=== PATIENT | male | born 1990 | race Caucasian/White ===

== ENCOUNTER 2017-01-01 15:15 | Emergency (ER) | payer SELFPAY ==
[2017-01-01] MEDS ORDERED: LORAZEPAM INJ 2 MG/1 ML VIAL IV ONE (15:40)
--- NOTE | 2017-01-01 15:54 | ER Document Report ---
ED Substance Abuse / Acc. OD - General Chief Complaint: Possible Overdose Stated Complaint: PSYCH EVALUATION,POSSIBLE OVERDOSE Notes: The patient is a 26-year-old male who presents in [employer] custody after he was found to be exhibiting bizarre behavior at the [facility]. To bystanders had to hold down 4 EDIN the arrested him. The patient was agitated and received 5 mg Haldol and 50 mg Benadryl IM by EMS. On arrival to the ER, the patient is not agitated and answering questions appropriately. He said he only smoked weed and does not think that it was laced with anything. He also said he drank a whole bottle of dextromethorphan in the attempt to get high. He did not want to hurt himself. He says he did not have any psychiatric disorders. Denies chest pain, palpitations, shortness of breath, nausea, vomiting, suicidal ideation, homicidal ideation, fevers or headache. TRAVEL OUTSIDE OF THE [place] IN LAST 30 DAYS: No Past Medical History - General Information source: Patient, Law Enforcement, Emergency Med Personnel - Social History Smoking Status: Unknown if Ever Smoked Drug Abuse: Prescription drugs Family History: Reviewed & Not Pertinent Review of Systems - Review of Systems Notes: REVIEW OF SYSTEMS: CONSTITUTIONAL: -fevers, -chills EENT: -eye pain, -difficulty swallowing, -nasal congestion CARDIOVASCULAR:-chest pain, -syncope. RESPIRATORY: -cough, -SOB GASTROINTESTINAL: -abdominal pain, - nausea, -vomiting, -diarrhea GENITOURINARY: -dysuria, -hematuria MUSCULOSKELETAL: -back pain, -neck pain SKIN: -rash or skin lesions. HEMATOLOGIC: -easy bruising or bleeding. LYMPHATIC: -swollen, enlarged glands. NEUROLOGICAL: +altered mental status PSYCHIATRIC: -anxiety, -depression, +drug abuse, -SI/HI ALL OTHER SYSTEMS REVIEWED AND NEGATIVE. Physical Exam - Vital signs Vitals: Temp Pulse Resp BP Pulse Ox 98.4 F 142 H 20 120/67 93 01/01/17 15:25 01/01/17 15:25 01/01/17 15:25 01/01/17 15:25 01/01/17 15:25 - Notes Notes: PHYSICAL EXAMINATION: GENERAL: Well-appearing, well-nourished and in no acute distress. HEAD: Atraumatic, normocephalic. EYES: Pupils equal round and reactive to light, extraocular movements intact, sclera anicteric, conjunctiva are normal. ENT: nares patent, oropharynx clear without exudates. Moist mucous membranes. NECK: Normal range of motion, supple without lymphadenopathy LUNGS: Breath sounds clear to auscultation bilaterally and equal. No wheezes rales or rhonchi. HEART: Tachycardia. Regular rhythm without murmurs ABDOMEN: Soft, nontender, normoactive bowel sounds. No guarding, no rebound. No masses appreciated. EXTREMITIES: Normal range of motion, no pitting or edema. No cyanosis. NEUROLOGICAL: Cranial nerves grossly intact. Normal speech. Normal sensory, motor, and reflex exams. PSYCH: Initially agitated. Denies SI/HI. SKIN: Warm, Dry, normal turgor, no rashes or lesions noted. Course - Re-evaluation Re-evalutation: 01/01/17 16:43 Spoke to [employer]. Recommends watching for 6 hours or until he returns to baseline. 01/01/17 21:37 Patient's tachycardia has resolved after 4 L IV fluid. His mental status is calm and at baseline. Instructed him to not take dextromethorphan to get high. Also told him to drink plenty of fluids to help prevent any rhabdo. He denies any suicidal ideation or homicidal ideation. - Vital Signs Vital signs: Temp Pulse Resp BP Pulse Ox 98.9 F 142 H 20 131/92 H 98 01/01/17 17:00 01/01/17 15:25 01/01/17 18:01 01/01/17 18:00 01/01/17 18:01 - Laboratory Result Diagrams: 01/01/17 15:40 01/01/17 15:40 Laboratory results interpreted by me: 01/01/17 01/01/17 15:40 15:40 Seg Neutrophils % 82.5 H Lymphocytes % 10.9 L Creatinine 1.45 H Est GFR (Non-Af Amer) 59 L Glucose 143 H Creatine Kinase 1039 H Salicylates < 1.0 L Acetaminophen < 10 L - EKG Interpretation by Me EKG shows normal: Sinus rhythm, [place], Intervals, QRS Complexes, ST-T Waves Rate: Tachycardia Additional EKG results interpreted by nv: QTc 469 Discharge - Discharge Clinical Impression: Rhabdomyolysis Qualifiers: Rhabdomyolysis type: non-traumatic Qualified Code(s): M62.82 - Rhabdomyolysis Dextromethorphan poisoning Qualifiers: Encounter type: initial encounter Injury intent: accidental or unintentional Qualified Code(s): T48.3X1A - Poisoning by antitussives, accidental ( unintentional), initial encounter Condition: Stable Disposition: HOME, SELF-CARE Additional Instructions: Drink plenty of fluids over the next few days. Do not take dextromethorphan to get high. Follow-up with your primary care physician to have your kidney tests rechecked. AMPHETAMINE / METHAMPHETAMINE ABUSE: Amphetamines are addicting stimulants. Amphetamines overstimulate the nervous system and give a false feeling of power and mastery. These drugs may be obtained as prescription pills for weight loss, narcolepsy, or attention- deficit disorder. More often they're bought as an illegal street drug, methamphetamine (crank, crystal, speed). Using amphetamines repeatedly can lead to serious medical problems including malnutrition, severe depression, and paranoia. It can take increasing amounts to feel good. Eventually, there will be a "burn out." When you go off amphetamines there is a period of depression that may last for weeks or even months. High doses of amphetamines can cause seizures, confusion, hallucinations, delusions, high blood pressure, muscle damage, heart damage, or sudden . Many times these deadly complications occur even with "normal" doses. Injection of amphetamines is risky for developing abscesses, endocarditis ( heart infection), pneumonia, and AIDS. Withdrawal from amphetamines often causes anxiety, depression, and drug cravings. Some users become paranoid and psychotic. There may be cramps, nausea , and vomiting. Many treatment programs are available, but you must make the decision to quit. Medication can be prescribed to control the symptoms of amphetamine toxicity (beta blockers or benzodiazepines). Withdrawal symptoms may require tranquilizers. OVERDOSE / INGESTION: You have taken more medication than you should have. After your evaluation and care, it is felt that your overdose is not likely to be harmful or of any significant consequences to you and you are being discharged. In the future, you should be careful not to take more medications than what is prescribed for you. Although your overdose does not seem to be of any danger to you at this time, if you develop any unusual or unexpected symptoms after your discharge, you should return to the Emergency Department immediately for re-evaluation. INSTRUCTIONS FOR HOME CARE FOLLOWING DRUG OVERDOSAGE: The doctor feels it's safe for you to go home. You will need to be observed. If charcoal and a laxative was given to you, expect some loose black stools soon. Take no medications unless approved by a physician, including alcohol. If drowsy, lie on your stomach or side for sleeping to avoid aspiration if vomiting occurs. Take only liquids by mouth until there is no more nausea. FOR THE OBSERVER: Observe the patient for the next 24 hours and call or go to the hospital if any of the following are noted: prolonged or repeated vomiting, difficulty in arousing, convulsions (seizures or fits), fever, persistent cough, breathing that is too slow or too rapid, or confused or bizarre behavior. If a counselling visit has been arranged, make sure the patient attends. Call the physician or poison control if you have questions. FOLLOW-UP CARE: If you have been referred to a physician for follow-up care, call the physician s office for an appointment as you were instructed or within the next two days. If you experience worsening or a significant change in your symptoms, notify the physician immediately or return to the Emergency Department at any time for re-evaluation.
[2017-01-01] MEDS: NORMAL SALINE 1000 ML 1,000 ML IV PRN ×2 (15:58→16:37)
[2017-01-01 16:02] LABS: ABSOLUTE BASOPHILS # (AUTO) 0.1 10^3/uL (0.0-0.2); ABSOLUTE MONOCYTES (AUTO) 0.5 10^3/uL (0.1-1.4); ABSOLUTE NEUT (AUTO) 7.3 10^3/uL (1.7-8.2); BASOPHILS % (AUTO) 0.7 % (0-2); EOSINOPHILS % (AUTO) 0.1 % (0-6); HEMATOCRIT 47.4 % (37.9-51.0); HEMOGLOBIN 16.1 g/dL (13.5-17.0); HGB HCT DIFFERENCE 0.9; LYMPHOCYTES % (AUTO) 10.9 % (13-45); MEAN CORPUSCULAR HEMOGLOBIN 29.6 pg (27.0-33.4); MEAN CORPUSCULAR VOLUME 87 fl (80-97); MONOCYTES % (AUTO) 5.8 % (3-13); RED BLOOD COUNT 5.44 10^6/uL (4.35-5.55); RED CELL DISTRIBUTION WIDTH 13.4 % (11.5-14.0); SEGMENTED NEUTROPHILS % (AUTO) 82.5 % (42-78); WHITE BLOOD COUNT 8.8 10^3/uL (4.0-10.5)
[2017-01-01 16:19] LABS: ALANINE AMINOTRANSFERASE 36 U/L (21-72); ALBUMIN 4.4 g/dL (3.5-5.0); ALKALINE PHOSPHATASE 61 U/L (38-126); ANION GAP 16 (5-19); ASPARTATE AMINO TRANSFERASE 53 U/L (17-59); BILIRUBIN,TOTAL 0.4 mg/dL (0.2-1.3); BLOOD UREA NITROGEN 13 mg/dL (7-20); CALCIUM 10.1 mg/dL (8.4-10.2); CARBON DIOXIDE 24 mmol/L (22-30); CHLORIDE 103 mmol/L (98-107); CREATINE KINASE 1039 U/L (55-170); CREATININE RESULT 1.45 mg/dL (0.52-1.25); GLUCOSE 143 mg/dL (75-110); POTASSIUM 4.1 mmol/L (3.6-5.0); SODIUM 143.1 mmol/L (137-145); TOTAL PROTEIN 6.7 g/dL (6.3-8.2)
[2017-01-01 16:21] LABS: ALCOHOL < 10 mg/dL (NONE DETECTED)
[2017-01-01] MEDS ORDERED: NORMAL SALINE 1000 ML 1,000 ML IV PRN (19:46)
[2017-01-01 20:35] LABS: APPEARANCE,URINE CLEAR; BILIRUBIN,URINE NEGATIVE (NEGATIVE); GLUCOSE, URINE NEGATIVE (NEGATIVE); KETONES,URINE NEGATIVE (NEGATIVE); LEUKOCYTE ESTERASE,URINE NEGATIVE (NEGATIVE); NITRITE,URINE NEGATIVE (NEGATIVE); PROTEIN,URINE NEGATIVE (NEGATIVE); URINE SPECIFIC GRAVITY 1.011; UROBILINOGEN,URINE NEGATIVE mg/dL (<2.0)
[2017-01-02 00:02] VITALS: BP 119/87
[2017-01-02 00:31] LABS: URINE BARBITURATES SCREEN NEGATIVE; URINE METHADONE SCREEN NEGATIVE; URINE OPIATES LOW NEGATIVE; URINE PHENCYCLIDINE SCREEN UNCONFIRMED POSITIVE
--- NOTE | 2017-01-02 16:04 | EKG REPORT ---
SEVERITY:- BORDERLINE ECG - SINUS TACHYCARDIA BORDERLINE PROLONGED QT INTERVAL : Confirmed by: Corrina Mcintosh MD 02-Jan-2017 16:03:12
== END 2017-01-01 23:15 | disposition home or self-care (01) ==
LOC: ER 15:15
DX: T48.3X1A Poisoning by antitussives, accidental (unintentional), initial encounter (principal); R00.0 Tachycardia, unspecified; R45.1 Restlessness and agitation; M62.82 Rhabdomyolysis
CPT/HCPCS: 93005; 99285; 96361; 96374; 36415; 80307 ×4; 82550; 85025; 80053; 81001; 93010; J2060; J7030

== ENCOUNTER 2019-10-29 16:08 | Inpatient (IN) | payer SELFPAY ==
[2019-10-29] MEDS ORDERED: MAG HYDROX/AL HYDROX/SIMETH SUSP 30 ML UDCUP PO ONE (16:49)
[2019-10-29] MEDS ORDERED: LIDOCAINE 2% VISCOUS SOLN 15 ML UDCUP PO ONE (16:49)
[2019-10-29] MEDS ORDERED: METOCLOPRAMIDE HCL ORAL SOLN 10 MG/10 ML UDCUP PO ONE (16:49)
[2019-10-29 17:53] LABS: HEMATOCRIT 50.4 % (37.9-51.0); HEMOGLOBIN 17.5 g/dL (13.5-17.0); MEAN CORPUSCULAR HEMOGLOBIN 28.2 pg (27.0-33.4); MEAN CORPUSCULAR HGB CONC 34.7 g/dL (32.0-36.0); MEAN CORPUSCULAR VOLUME 81 fl (80-97); PLATELET COUNT 219 10^3/uL (150-450); RED CELL DISTRIBUTION WIDTH 13.6 % (11.5-14.0); WHITE BLOOD COUNT 25.2 10^3/uL (4.0-10.5)
[2019-10-29 17:59] LABS: APPEARANCE,URINE SLIGHTLY-CLOUDY; BILIRUBIN,URINE NEGATIVE (NEGATIVE); COLOR,URINE AMBER; GLUCOSE, URINE NEGATIVE (NEGATIVE); KETONES,URINE TRACE mg/dL (NEGATIVE); LEUKOCYTE ESTERASE,URINE NEGATIVE (NEGATIVE); NITRITE,URINE NEGATIVE (NEGATIVE); PROTEIN,URINE 100 mg/dL (NEGATIVE); URINE SPECIFIC GRAVITY 1.027
[2019-10-29 18:01] LABS: ALBUMIN 4.4 g/dL (3.5-5.0); ALKALINE PHOSPHATASE 80 U/L (38-126); ANION GAP 12 (5-19); ASPARTATE AMINO TRANSFERASE 29 U/L (17-59); BILIRUBIN,DIRECT 0.1 mg/dL (0.0-0.4); BILIRUBIN,TOTAL 1.5 mg/dL (0.2-1.3); BLOOD UREA NITROGEN 14 mg/dL (7-20); CALCIUM 9.2 mg/dL (8.4-10.2); CARBON DIOXIDE 29 mmol/L (22-30); CHLORIDE 91 mmol/L (98-107); GLUCOSE 131 mg/dL (75-110); TOTAL PROTEIN 7.4 g/dL (6.3-8.2)
--- NOTE | 2019-10-29 18:02 | ER Document Report ---
ED Medical Screen (RME) - General Chief Complaint: Abdominal Pain Stated Complaint: ABDOMINAL PAIN Time Seen by Provider: 10/29/19 16:43 Notes: Patient is a 29-year-old male who presents to the emergency department with a chief complaint of abdominal pain. His pain started Wednesday. He states he vomited twice that day. Pain is in his sternal abdomen. Denies any past medical history. He took Imodium to try to help with his pain, but did not help. Exam: Tender left upper quadrant abdomen. I have greeted and performed a rapid initial assessment of this patient. A comprehensive ED assessment and evaluation of the patient, analysis of test results and completion of medical decision making process will be conducted by an additional ED providers. TRAVEL OUTSIDE OF THE [place] IN LAST 30 DAYS: No - Related Data Allergies/Adverse Reactions: No Known Allergies Allergy (Unverified 10/29/19 16:48) Past Medical History - Social History Frequency of alcohol use: Occasional Drug Abuse: None Physical Exam - Vital signs Vitals: Temp Pulse Resp BP Pulse Ox 99.8 F 118 H 18 133/92 H 96 10/29/19 16:22 10/29/19 16:22 10/29/19 16:22 10/29/19 16:22 10/29/19 16:22 Course - Vital Signs Vital signs: Temp Pulse Resp BP Pulse Ox 99.8 F 118 H 18 133/92 H 96 10/29/19 16:22 10/29/19 16:22 10/29/19 16:22 10/29/19 16:22 10/29/19 16:22 - Laboratory Result Diagrams: 10/29/19 17:30 10/29/19 17:30
[2019-10-29] MEDS ORDERED: NORMAL SALINE 1000 ML 1,000 ML IV ONE ×2 (18:23→20:21)
[2019-10-29] MEDS ORDERED: MORPHINE SULFATE 10 MG/ML INJ IV ONE (18:58)
--- NOTE | 2019-10-29 19:01 | ER Document Report ---
ED GI/ - General Chief Complaint: Abdominal Pain Stated Complaint: ABDOMINAL PAIN Time Seen by Provider: 10/29/19 16:43 Notes: Patient is a 29-year-old male who presents to the emergency department with a chief complaint of abdominal pain. His pain started Wednesday. He states he vomited twice that day. Pain is in his sternal abdomen. Denies any past medical history. He took Imodium to try to help with his pain, but did not help. He denies any past medical history. Denies any medication use. States he drinks 1-2 beers 3-4 times a week. TRAVEL OUTSIDE OF THE [place] IN LAST 30 DAYS: No - Related Data Allergies/Adverse Reactions: No Known Allergies Allergy (Unverified 10/29/19 16:48) Past Medical History - Social History Smoking Status: Never Smoker Frequency of alcohol use: Occasional Drug Abuse: None Family History: Reviewed & Not Pertinent Patient has suicidal ideation: No Patient has homicidal ideation: No Review of Systems - Review of Systems Notes: REVIEW OF SYSTEMS: CONSTITUTIONAL : Denies recent illness. Denies recent unintentional weight loss. Denies fever, chills, or sweats. EENT: Denies eye, ear, throat, or mouth pain, discharge, or symptoms. Denies nasal or sinus congestion. CARDIOVASCULAR: Denies chest pain. RESPIRATORY: Denies shortness of breath, cough, congestion, difficulty breathing, or wheezing. GASTROINTESTINAL: See HPI. GENITOURINARY: Denies difficulty urinating, burning, blood in urine, urgency or frequency. MUSCULOSKELETAL: Denies neck and back pain. Denies joint pain or swelling. SKIN: Denies rash, itchiness, or lesions HEMATOLOGIC : Denies easy bruising or bleeding. LYMPHATIC: Denies swollen, painful, enlarged glands. NEUROLOGICAL: Denies no numbness or tingling denies weakness. Denies headache. Denies altered mental status. Denies alteration in speech. PSYCHIATRIC: Denies stress, anxiety, alteration in sleep patterns, or depressi on. All other systems reviewed and negative. Physical Exam - Vital signs Vitals: Temp Pulse Resp BP Pulse Ox 99.8 F 118 H 18 133/92 H 96 10/29/19 16:22 10/29/19 16:22 10/29/19 16:22 10/29/19 16:22 10/29/19 16:22 - Notes Notes: PHYSICAL EXAMINATION: GENERAL: Appears well, healthy, well-nourished, no acute distress. HEAD: Normocephalic, atraumatic. EYES: PERRL, conjunctiva normal, all extraocular movements intact, sclera nonicteric ENT: Moist mucous membranes. NECK: Supple, no noticeable swelling, redness, rash. Normal range of motion. LUNGS: Equal breath sounds bilaterally and clear to auscultation. No wheezes rales or rhonchi. CARDIOVASCULAR: S1-S2, regular rate, regular rhythm. Radial pulses 2+, normal. ABDOMEN: Normoactive bowel sounds. Soft, very tender mid upper abdomen, no guarding, no rebound tenderness, and no masses palpated. EXTREMITIES: Normal strength and range of motion, no pitting or edema. No cyanosis. NEUROLOGICAL: Moves all extremities upon command. Strength 5/5 in all extremities. PSYCH: Normal mood, normal affect. SKIN: Warm, dry. No rash, lesions, ulcerations noted. Normal skin turgor. Course - Re-evaluation Re-evalutation: 10/29/19 20:21 Patient's hematology shows a leukocytosis of 25,200. His hemoglobin was also elevated at 17.5. This is most likely due to dehydration. Patient is hyponatremic with a sodium of 132 and a chloride of 91. Another liter of fluids will be given. Total bilirubin is 1.5. Lipase is 1180. Due to patient having so much tenderness on his physical exam, he will be sent for a CT of the abdomen pelvis to rule out any other etiology. 10/29/19 22:00 CT of the abdomen and pelvis show pancreatitis, scites, and small bilateral pleural effusions. I spoke with Dr. Edgar, the hospitalist physician. Patient will be admitted to the medical floor. - Vital Signs Vital signs: Temp Pulse Resp BP Pulse Ox 98.5 F 91 18 125/72 92 10/30/19 07:32 10/30/19 07:32 10/30/19 07:32 10/30/19 07:32 10/30/19 07:32 - Laboratory Result Diagrams: 10/30/19 06:06 10/30/19 06:06 Laboratory results interpreted by me: 10/29/19 10/29/19 10/29/19 17:30 17:30 17:30 WBC 25.2 H RBC 6.20 H Hgb 17.5 H Seg Neuts % (Manual) 88 H Lymphocytes % (Manual) 4 L Abs Neuts (Manual) 22.2 H Abs Monocytes (Manual) 2.0 H Sodium 132.1 L Chloride 91 L Glucose 131 H Total Bilirubin 1.5 H Lipase 1180.9 H Free T3 pg/mL Urine Protein 100 H Urine Ketones TRACE H Urine Blood SMALL H Urine Urobilinogen 2.0 H 10/29/19 17:30 WBC RBC Hgb Seg Neuts % (Manual) Lymphocytes % (Manual) Abs Neuts (Manual) Abs Monocytes (Manual) Sodium Chloride Glucose Total Bilirubin Lipase Free T3 pg/mL 2.10 L Urine Protein Urine Ketones Urine Blood Urine Urobilinogen Discharge - Discharge Clinical Impression: Pleural effusion, Hyponatremia Pancreatitis Qualifiers: Chronicity: acute Pancreatitis type: unspecified pancreatitis type Acute pancreatitis complication: unspecified Qualified Code(s): K85.90 - Acute pancreatitis without necrosis or infection, unspecified Leukocytosis Qualifiers: Leukocytosis type: unspecified Qualified Code(s): D72.829 - Elevated white blood cell count, unspecified Condition: Stable Disposition: ADMITTED INPATIENT Admitting Provider: Tala (Hospitalist) Unit Admitted: Medical Floor
[2019-10-29 19:15] LABS: BASOPHILS % (MANUAL) 0 % (0-2); EOSINOPHILS % (MANUAL) 0 % (0-6); LYMPHOCYTES % (MANUAL) 4 % (13-45); MONOCYTES % (MANUAL) 8 % (3-13); PLATELET COMMENT ADEQUATE; RBC MORPHOLOGY COMMENT NORMO-CYTIC/CHROMIC; SEGMENTED NEUTROPHILS % (MAN) 88 % (42-78); TOTAL CELLS COUNTED 100
--- NOTE | 2019-10-29 20:27 | RADIOLOGY REPORT (SQ) ---
EXAM DESCRIPTION: CT ABDOMEN PELVIS WITH IV CONTRAST COMPLETED DATE/TME: 10/29/2019 18:45 CLINICAL HISTORY: 29 years, Male, abdominal pain This exam was performed according to our departmental dose-optimization program which includes automated exposure control, adjustment of the mA and/or kVp according to patient size and/or use of iterative reconstruction technique where applicable. FINDINGS: Visualized lung bases demonstrate mild layering bilateral pleural effusions. Liver, spleen, gallbladder, adrenal glands and kidneys are within normal limits. No hydronephrosis or biliary dilatation. Moderate peripancreatic inflammation is noted. Mild to moderate pancreatic inflammation is noted diffusely. Mild upper abdominal ascites. No dilated loops of bowel to suggest obstruction. Mild amount of stool in the colon. Bladder is unremarkable. No abdominal or pelvic lymphadenopathy. Abdominal aorta is within normal limits. IMPRESSION: Moderate findings of pancreatitis. Mild upper abdominal ascites. Small bilateral pleural effusions.
[2019-10-29] MEDS ORDERED: MORPHINE SULFATE 10 MG/ML INJ IV PRN ×2 (21:50)
[2019-10-29] MEDS ORDERED: MAG HYDROX/AL HYDROX/SIMETH SUSP 30 ML UDCUP PO PRN (21:50)
[2019-10-29] MEDS ORDERED: HYDRALAZINE HCL INJ/PF 20 MG/1 ML SDV IV PRN (21:50)
[2019-10-29] MEDS ORDERED: ACETAMINOPHEN 650 MG SUPP.RECT PR PRN (21:50)
[2019-10-29] MEDS ORDERED: MAGNESIUM HYDROXIDE SUSP 30 ML UDCUP PO PRN (21:50)
[2019-10-29] MEDS ORDERED: PROMETHAZINE HCL INJ 25 MG/1 ML VIAL IV PRN (21:53)
[2019-10-29] MEDS: METOCLOPRAMIDE HCL INJ/PF 10 MG/2 ML SDV IV SCH (22:20)
[2019-10-29] MEDS: HEPARIN SOD (PORCINE) 5,000 UNIT/ML 1 ML VIAL SUBCUT SCH (22:20)
[2019-10-29] MEDS: FAMOTIDINE INJ/PF 20 MG/2 ML SDV IV SCH (22:20)
[2019-10-29] MEDS: DEXTROSE 5%-LACTATED RINGERS 1,000 ML IV PRN (22:34)
[2019-10-29] MEDS: MORPHINE SULFATE 10 MG/ML INJ IV PRN (22:38)
[2019-10-30] MEDS: MORPHINE SULFATE 10 MG/ML INJ IV PRN ×4 (00:16→22:24)
[2019-10-30] MEDS: MELATONIN 5 MG TABLET PO PRN ×2 (00:16→22:25)
--- NOTE | 2019-10-30 00:49 | PDOC H&P ---
History of Present Illness Admission Date/PCP: 10/29/2019 21:33 No local PCP Patient complains of: Abdominal pain History of Present Illness: RAHUL RAI is a 29 year old male who presents the emergency room with a 3-day history of abdominal pain. He admits his constant, moderate to severe ep igastric dull aching pain began on the late evening of 10/27/2019 and has persisted since that time. Earlier in afternoon and early evening of 10/27/2019 he had consumed a total of 8 beers and 2 mixed drinks, which is far more than his usual occasional social alcohol consumption. His pain was associated with 2 episodes of vomiting during the first 24 hours and constant nausea and anorexia. His pain has not responded to home treatment with Coricidin capsules Imodium-AD tablets. He denies other associated or accompanying signs and symptoms. He denies prior similar episodes. He has not identified any aggravating or ameliorating factors for his abdominal pain. In the emergency room he was found to have an elevated lipase of 1180 with an elevated white blood count of 25,200. A CT scan of the abdomen and pelvis revealed evidence of acute pancreatitis. Patient was subsequently admitted to the hospital for further evaluation treatment. Past Medical History Cardiac Medical History: Denies: Coronary Artery Disease, DVT, Hypertension, Pulmonary Embolism Pulmonary Medical History: Denies: Asthma, Chronic Obstructive Pulmonary Disease (COPD) EENT Medical History: Denies: Cataracts, Nose - Septal deviation Neurological Medical History: Denies: Multiple Sclerosis, Seizures Endocrine Medical History: Denies: Diabetes Mellitus Type 1, Hyperthyroidism, Hypothyroidism, Obesity Renal/ Medical History: Denies: Chronic Kidney Disease, Nephrolithiasis Malignancy Medical History: Reports: None GI Medical History: Denies: Cirrhosis, Crohn's Disease, Gastroesophageal Reflux Disease, Hepatitis, Peptic Ulcer Disease, Ulcerative Colitis Musculoskeltal Medical History: Denies: Arthritis, Gout Skin Medical History: Denies: Eczema, Psoriasis Psychiatric Medical History: Denies: Alcohol Dependency, Substance Abuse, Tobacco Dependency Traumatic Medical History: Reports: None Hematology: Denies: Anemia, Bleeding Tendencies Infectious Medical History: Reports: None Past Surgical History Past Surgical History: Reports: None Social History Information Source: Patient Lives with: Alone Smoking Status: Never Smoker Electronic Cigarette use?: No Frequency of Alcohol Use: Social - 1 or 2 beers 3-4 times per week when out with friends Hx Recreational Drug Use: No Drugs: None Hx Prescription Drug Abuse: No - Advance Directive Resuscitation Status: Full Code Surrogate healthcare decision maker:: Candido Rai Family History Family History: Hypertension - Father. denies: CAD, DM, Malignancy Parental Family History Reviewed: Yes Children Family History Reviewed: No Sibling(s) Family History Reviewed.: Yes Medication/Allergy Allergies/Adverse Reactions: No Known Allergies Allergy (Unverified 10/29/19 16:48) Review of Systems Constitutional: ABSENT: chills, fever(s) Eyes: ABSENT: visual disturbances, other - Eye pain Ears: ABSENT: hearing changes, other - Ear pain Nose, Mouth, and Throat: ABSENT: headache(s), mouth pain, sore throat Cardiovascular: ABSENT: chest pain, palpitations Respiratory: ABSENT: cough, dyspnea Gastrointestinal: PRESENT: as per HPI, abdominal pain, nausea, vomiting. ABSENT: constipation, diarrhea Genitourinary: ABSENT: difficulty urinating, dysuria, hematuria Musculoskeletal: ABSENT: back pain, joint swelling, muscle weakness Integumentary: ABSENT: pruritus, rash Neurological: ABSENT: confusion, convulsions, focal weakness, memory loss, syncope Psychiatric: ABSENT: anxiety, depression Endocrine: ABSENT: cold intolerance, heat intolerance, polydipsia, polyphagia, polyuria Hematologic/Lymphatic: ABSENT: easy bleeding, easy bruising Allergic/Immunologic: ABSENT: seasonal rhinorrhea Physical Exam Vital Signs: Temp Pulse Resp BP Pulse Ox 99.3 F 104 H 18 114/72 93 10/29/19 21:09 10/29/19 21:09 10/29/19 16:22 10/29/19 21:09 10/29/19 21:09 Intake & Output 10/27/19 10/28/19 10/29/19 23:59 23:59 23:59 Intake Total 1000 Balance 1000 Weight 84.7 kg General appearance: PRESENT: cooperative, mild distress - Secondary to abdominal pain Head exam: PRESENT: atraumatic, normocephalic Eye exam: PRESENT: conjunctiva pink. ABSENT: conjunctival injection, scleral icterus Ear exam: PRESENT: normal external ear exam. ABSENT: bleeding, drainage Mouth exam: PRESENT: dry mucosa, neck supple Neck exam: ABSENT: thyromegaly, tracheal deviation Respiratory exam: PRESENT: clear to auscultation sulema, symmetrical, unlabored Cardiovascular exam: PRESENT: RRR. ABSENT: clicks, gallop, rubs Pulses: PRESENT: normal radial pulses, normal dorsalis pedis pul Vascular exam: PRESENT: normal capillary refill. ABSENT: pallor GI/Abdominal exam: PRESENT: hypoactive bowel sounds, soft, tenderness - Moderate epigastric tenderness on palpation. ABSENT: distended Rectal exam: PRESENT: deferred Extremities exam: ABSENT: joint swelling, pedal edema Musculoskeletal exam: ABSENT: deformity, dislocation Neurological exam: PRESENT: alert, oriented to person, oriented to place, oriented to time, oriented to situation, CN II-XII grossly intact. ABSENT: motor sensory deficit Psychiatric exam: PRESENT: appropriate affect, normal mood Skin exam: PRESENT: dry, intact, warm. ABSENT: jaundice, rash, urticaria Results Laboratory Results: 10/29/19 17:30 10/29/19 17:30 10/29/19 10/29/19 10/29/19 17:30 17:30 17:30 WBC 25.2 H RBC 6.20 H Hgb 17.5 H Hct 50.4 MCV 81 MCH 28.2 MCHC 34.7 RDW 13.6 Plt Count 219 Seg Neutrophils % Not Reportable Sodium 132.1 L Potassium 4.0 Chloride 91 L Carbon Dioxide 29 Anion Gap 12 BUN 14 Creatinine 0.93 Est GFR ( Amer) > 60 Glucose 131 H Calcium 9.2 Total Bilirubin 1.5 H AST 29 Alkaline Phosphatase 80 Total Protein 7.4 Albumin 4.4 Lipase 1180.9 H Urine Color JANE Urine Appearance SLIGHTLY-CLOUDY Urine pH 6.0 Ur Specific [place] 1.027 Urine Protein 100 H Urine Glucose (UA) NEGATIVE Urine Ketones TRACE H Urine Blood SMALL H Urine Nitrite NEGATIVE Ur Leukocyte Esterase NEGATIVE Urine WBC (Auto) 4 Urine RBC (Auto) 1 Impressions: Abdomen/Pelvis CT 10/29/19 18:45 IMPRESSION: Moderate findings of pancreatitis. Mild upper abdominal ascites. Small bilateral pleural effusions. Assessment and Plan - Diagnosis (1) Acute pancreatitis without infection or necrosis Qualifiers: Pancreatitis type: alcohol induced Qualified Code(s): K85.20 - Alcohol induced acute pancreatitis without necrosis or infection Is this a current diagnosis for this admission?: Yes (2) Acute epigastric pain Is this a current diagnosis for this admission?: Yes (3) Leukocytosis Qualifiers: Leukocytosis type: unspecified Qualified Code(s): D72.829 - Elevated white blood cell count, unspecified Is this a current diagnosis for this admission?: Yes (4) Hyponatremia Is this a current diagnosis for this admission?: Yes - Plan Summary Summary: Patient is admitted to the medical floor where he will receive routine supportive and symptomatic cares. He will be treated with IV fluid using lactated Ringer's. He will be allowed to take clear liquids initially as tolerated and desired. He will be treated with IV Reglan and famotidine. When he is able to take and advanced diet he should receive pancreatic enzyme replacement with meals and oral sucralfate prior to meals. He will receive morphine sulfate 2 to 4 mg IV every 2 hours on an as-needed basis for pain control using a sliding scale for dosage. Serial laboratory determinations of CBCs, metabolic profiles, lipase levels, amylase levels and magnesium levels will be obtained as appropriate. - Time Time Spent with patient: 15-24 minutes Medications reviewed and adjusted accordingly: Yes Anticipated discharge: Home - Inpatient Certification Based on my medical assessment, after consideration of the patient's comorbidities, presenting symptoms, or acuity I expect that the services needed warrant INPATIENT care.: Yes I certify that my determination is in accordance with my understanding of Medicare's requirements for reasonable and necessary INPATIENT services [42 CFR 412.3e].: Yes Medical Necessity: Need Close Monitoring Due to Risk of Patient Decompensation, Need For IV Fluids, Need for Pain Control, Risk of Complication if Not Cared For in Hospital
[2019-10-30] MEDS: DEXTROSE 5%-LACTATED RINGERS 1,000 ML IV PRN ×4 (05:19→19:50)
[2019-10-30 06:41] LABS: HEMATOCRIT 39.9 % (37.9-51.0); MEAN CORPUSCULAR HEMOGLOBIN 28.6 pg (27.0-33.4); MEAN CORPUSCULAR HGB CONC 34.5 g/dL (32.0-36.0); MEAN CORPUSCULAR VOLUME 83 fl (80-97); PLATELET COUNT 168 10^3/uL (150-450); RED BLOOD COUNT 4.81 10^6/uL (4.35-5.55); RED CELL DISTRIBUTION WIDTH 13.3 % (11.5-14.0); WHITE BLOOD COUNT 15.5 10^3/uL (4.0-10.5)
[2019-10-30 06:42] LABS: AMYLASE 218 U/L (30-110); ANION GAP 6 (5-19); BLOOD UREA NITROGEN 10 mg/dL (7-20); CALCIUM 7.9 mg/dL (8.4-10.2); CARBON DIOXIDE 29 mmol/L (22-30); CHLORIDE 97 mmol/L (98-107); CHOLESTEROL 153.54 mg/dL (0-200); GLUCOSE 123 mg/dL (75-110); POTASSIUM 3.7 mmol/L (3.6-5.0); TRIGLYCERIDES 134 mg/dL (<150)
[2019-10-30] MEDS: HEPARIN SOD (PORCINE) 5,000 UNIT/ML 1 ML VIAL SUBCUT SCH ×3 (06:45→22:24)
[2019-10-30 06:52] LABS: DIRECT LDL 90 mg/dL (<100); HEMOGLOBIN 13.8 g/dL (13.5-17.0)
[2019-10-30] MEDS: METOCLOPRAMIDE HCL INJ/PF 10 MG/2 ML SDV IV SCH ×4 (08:05→22:25)
[2019-10-30] MEDS ORDERED: DEXTROSE 40% GEL 15 GM TUBE PO PRN ×2 (08:48)
[2019-10-30] MEDS ORDERED: GLUCAGON,HUMAN RECOMB 1 MG INJ SUBCUT PRN (08:48)
[2019-10-30] MEDS ORDERED: DEXTROSE 50%-WATER 25 GM/50 ML DISP.SYRIN IV PRN ×2 (08:48)
--- NOTE | 2019-10-30 10:10 | RADIOLOGY REPORT (SQ) ---
EXAM DESCRIPTION: CHEST SINGLE VIEW COMPLETED DATE/TIME: 10/30/2019 9:47 am REASON FOR STUDY: SOB COMPARISON: None. EXAM PARAMETERS: NUMBER OF VIEWS: One view. TECHNIQUE: Single frontal radiographic view of the chest acquired. RADIATION DOSE: NA LIMITATIONS: Low lung volumes. FINDINGS: LUNGS AND PLEURA: There is infiltrate in the left base either atelectasis or pneumonia. L brodie urias are otherwise clear. MEDIASTINUM AND HILAR STRUCTURES: No masses. Contour normal. HEART AND VASCULAR STRUCTURES: Heart normal in size. Normal vasculature. BONES: No acute findings. HARDWARE: None in the chest. OTHER: No other significant finding. IMPRESSION: Left basilar infiltrate either atelectasis or pneumonia. TECHNICAL DOCUMENTATION: JOB ID: [id number] [employer]- All Rights Reserved Reading location - IP/workstation name: [email or web address]
[2019-10-30] MEDS: DOCUSATE SODIUM 100 MG/10 ML UDC PO SCH ×2 (10:50→17:23)
[2019-10-30] MEDS: FAMOTIDINE INJ/PF 20 MG/2 ML SDV IV SCH ×2 (10:54→22:25)
--- NOTE | 2019-10-30 11:53 | PDOC PROGRESS REPORT ---
Subjective Progress Note for:: 10/30/19 Subjective:: This is a 29 yr old male who had a recent alcohol binge who subsequently developed abdominal pain. He was found to have acute pancreatitis. Patient tried chicken broth this morning and reported increasing recurrence of epigastric pain and required IV pain meds. Will switch him to NPO status today. Continue IV fluids. Reason For Visit: ACUTE PANCREATITIS Physical Exam Vital Signs: Temp Pulse Resp BP Pulse Ox 99.7 F 92 18 128/75 H 90 L 10/30/19 11:32 10/30/19 11:32 10/30/19 11:32 10/30/19 11:32 10/30/19 11:32 Intake & Output 10/29/19 10/30/19 10/31/19 06:59 06:59 06:59 Intake Total 3900 935 Balance 3900 935 Weight 187 lb 13.341 oz General appearance: PRESENT: no acute distress, well-developed, well-nourished Head exam: PRESENT: atraumatic, normocephalic Eye exam: PRESENT: conjunctiva pink, EOMI, PERRLA. ABSENT: scleral icterus Ear exam: PRESENT: normal external ear exam Mouth exam: PRESENT: moist, tongue midline Neck exam: ABSENT: carotid bruit, JVD, lymphadenopathy, thyromegaly Respiratory exam: PRESENT: clear to auscultation sulema. ABSENT: rales, rhonchi, wheezes Cardiovascular exam: PRESENT: RRR. ABSENT: diastolic murmur, rubs, systolic murmur Pulses: PRESENT: normal dorsalis pedis pul GI/Abdominal exam: PRESENT: normal bowel sounds, soft, tenderness - minimial direct epig tenderness. ABSENT: distended, guarding, mass, organolmegaly, rebound Rectal exam: PRESENT: deferred Extremities exam: PRESENT: full ROM. ABSENT: calf tenderness, clubbing, pedal edema Neurological exam: PRESENT: alert, awake, oriented to person, oriented to place, oriented to time, oriented to situation, CN II-XII grossly intact. ABSENT: motor sensory deficit Results Laboratory Results: 10/30/19 06:06 10/30/19 06:06 10/29/19 10/29/19 10/29/19 17:30 17:30 17:30 WBC 25.2 H RBC 6.20 H Hgb 17.5 H Hct 50.4 MCV 81 MCH 28.2 MCHC 34.7 RDW 13.6 Plt Count 219 Seg Neutrophils % Not Reportable Sodium 132.1 L Potassium 4.0 Chloride 91 L Carbon Dioxide 29 Anion Gap 12 BUN 14 Creatinine 0.93 Est GFR ( Amer) > 60 Glucose 131 H Lactic Acid Calcium 9.2 Magnesium Total Bilirubin 1.5 H AST 29 Alkaline Phosphatase 80 Total Protein 7.4 Albumin 4.4 Triglycerides Cholesterol LDL Cholesterol Direct VLDL Cholesterol HDL Cholesterol Amylase Lipase 1180.9 H TSH Free T3 pg/mL Urine Color JANE Urine Appearance SLIGHTLY-CLOUDY Urine pH 6.0 Ur Specific [place] 1.027 Urine Protein 100 H Urine Glucose (UA) NEGATIVE Urine Ketones TRACE H Urine Blood SMALL H Urine Nitrite NEGATIVE Ur Leukocyte Esterase NEGATIVE Urine WBC (Auto) 4 Urine RBC (Auto) 1 10/29/19 10/29/19 10/30/19 17:30 23:15 01:51 WBC RBC Hgb Hct MCV MCH MCHC RDW Plt Count Seg Neutrophils % Sodium Potassium Chloride Carbon Dioxide Anion Gap BUN Creatinine Est GFR ( Amer) Glucose Lactic Acid 1.1 0.9 Calcium Magnesium Total Bilirubin AST Alkaline Phosphatase Total Protein Albumin Triglycerides Cholesterol LDL Cholesterol Direct VLDL Cholesterol HDL Cholesterol Amylase Lipase TSH Free T3 pg/mL 2.10 L Urine Color Urine Appearance Urine pH Ur Specific [place] Urine Protein Urine Glucose (UA) Urine Ketones Urine Blood Urine Nitrite Ur Leukocyte Esterase Urine WBC (Auto) Urine RBC (Auto) 10/30/19 10/30/19 10/30/19 06:06 06:06 06:06 WBC 15.5 H RBC 4.81 Hgb 13.8 D Hct 39.9 MCV 83 MCH 28.6 MCHC 34.5 RDW 13.3 Plt Count 168 Seg Neutrophils % Sodium 131.8 L Potassium 3.7 Chloride 97 L Carbon Dioxide 29 Anion Gap 6 BUN 10 Creatinine 0.79 Est GFR ( Amer) > 60 Glucose 123 H Lactic Acid 0.9 Calcium 7.9 L Magnesium 2.1 Total Bilirubin AST Alkaline Phosphatase Total Protein Albumin Triglycerides 134 Cholesterol 153.54 LDL Cholesterol Direct 90 VLDL Cholesterol 27.0 HDL Cholesterol 43 Amylase 218 H Lipase 623.6 H TSH Free T3 pg/mL Urine Color Urine Appearance Urine pH Ur Specific [place] Urine Protein Urine Glucose (UA) Urine Ketones Urine Blood Urine Nitrite Ur Leukocyte Esterase Urine WBC (Auto) Urine RBC (Auto) 10/30/19 06:06 WBC RBC Hgb Hct MCV MCH MCHC RDW Plt Count Seg Neutrophils % Sodium Potassium Chloride Carbon Dioxide Anion Gap BUN Creatinine Est GFR ( Amer) Glucose Lactic Acid Calcium Magnesium Total Bilirubin AST Alkaline Phosphatase Total Protein Albumin Triglycerides Cholesterol LDL Cholesterol Direct VLDL Cholesterol HDL Cholesterol Amylase Lipase TSH 2.29 Free T3 pg/mL Urine Color Urine Appearance Urine pH Ur Specific [place] Urine Protein Urine Glucose (UA) Urine Ketones Urine Blood Urine Nitrite Ur Leukocyte Esterase Urine WBC (Auto) Urine RBC (Auto) Impressions: Abdomen/Pelvis CT 10/29/19 18:45 IMPRESSION: Moderate findings of pancreatitis. Mild upper abdominal ascites. Small bilateral pleural effusions. Chest X-Ray 10/30/19 08:59 IMPRESSION: Left basilar infiltrate either atelectasis or pneumonia. Assessment and Plan - Diagnosis (1) Acute pancreatitis Qualifiers: Pancreatitis type: alcohol induced Is this a current diagnosis for this admission?: Yes Plan: Keep patient to NPO status today. Continue IV fluids and pain meds. - Plan Summary Summary: Patient is admitted to the medical floor where he will receive routine supportive and symptomatic cares. He will be treated with IV fluid using lactated Ringer's. He will be allowed to take clear liquids initially as tolerated and desired. He will be treated with IV Reglan and famotidine. When he is able to take and advanced diet he should receive pancreatic enzyme replacement with meals and oral sucralfate prior to meals. He will receive morphine sulfate 2 to 4 mg IV every 2 hours on an as-needed basis for pain contr ol using a sliding scale for dosage. Serial laboratory determinations of CBCs, metabolic profiles, lipase levels, amylase levels and magnesium levels will be obtained as appropriate. - Time Time Spent with patient: 25-34 minutes
[2019-10-30] MEDS: KETOROLAC TROMETHAMINE INJ/PF 30 MG/1 ML SDV IV PRN ×2 (15:43→19:38)
[2019-10-31] MEDS: KETOROLAC TROMETHAMINE INJ/PF 30 MG/1 ML SDV IV PRN ×5 (00:30→21:36)
[2019-10-31 04:59] LABS: ABSOLUTE LYMPHOCYTES (AUTO) 0.8 10^3/uL (0.5-4.7); ABSOLUTE MONOCYTES (AUTO) 1.3 10^3/uL (0.1-1.4); BASOPHILS % (AUTO) 0.2 % (0-2); EOSINOPHILS % (AUTO) 0.1 % (0-6); HEMOGLOBIN 12.9 g/dL (13.5-17.0); LYMPHOCYTES % (AUTO) 6.9 % (13-45); MEAN CORPUSCULAR HEMOGLOBIN 28.7 pg (27.0-33.4); MEAN CORPUSCULAR HGB CONC 34.8 g/dL (32.0-36.0); MEAN CORPUSCULAR VOLUME 82 fl (80-97); MONOCYTES % (AUTO) 10.4 % (3-13); PLATELET COUNT 177 10^3/uL (150-450); RED BLOOD COUNT 4.49 10^6/uL (4.35-5.55); RED CELL DISTRIBUTION WIDTH 13.4 % (11.5-14.0); SEGMENTED NEUTROPHILS % (AUTO) 82.4 % (42-78); TOTAL CELLS COUNTED % (AUTO) 100 %; WHITE BLOOD COUNT 12.2 10^3/uL (4.0-10.5)
[2019-10-31 05:20] LABS: ANION GAP 6 (5-19); BLOOD UREA NITROGEN 10 mg/dL (7-20); CALCIUM 8.1 mg/dL (8.4-10.2); CARBON DIOXIDE 28 mmol/L (22-30); CHLORIDE 101 mmol/L (98-107); GLUCOSE 95 mg/dL (75-110); POTASSIUM 3.8 mmol/L (3.6-5.0)
[2019-10-31] MEDS: HEPARIN SOD (PORCINE) 5,000 UNIT/ML 1 ML VIAL SUBCUT SCH ×3 (06:42→21:51)
[2019-10-31] MEDS: DEXTROSE 5%-LACTATED RINGERS 1,000 ML IV PRN ×3 (06:44→21:36)
[2019-10-31] MEDS: DOCUSATE SODIUM 100 MG/10 ML UDC PO SCH ×2 (09:18→17:20)
[2019-10-31] MEDS: FAMOTIDINE INJ/PF 20 MG/2 ML SDV IV SCH ×2 (09:18→21:36)
[2019-10-31] MEDS: METOCLOPRAMIDE HCL INJ/PF 10 MG/2 ML SDV IV SCH ×4 (09:18→21:36)
--- NOTE | 2019-10-31 14:40 | PDOC PROGRESS REPORT ---
Subjective Progress Note for:: 10/31/19 Subjective:: This is a 29 yr old male who had a recent alcohol binge who subsequently developed abdominal pain. He was found to have acute pancreatitis. 10/30: Patient tried chicken broth this morning and reported increasing recurrence of epigastric pain and required IV pain meds. Will switch him to NPO status today. Continue IV fluids. 10/31: He did have a fever yesterday afternoon. Otherwise, no acute event overnight. He says that he feels better today and his abdominal pain has improved. No nausea or vomiting. Currently NPO. Will advance diet to clear liquids. Will decrease IV fluids. Reason For Visit: ACUTE PANCREATITIS Physical Exam Vital Signs: Temp Pulse Resp BP Pulse Ox 100.7 F H 93 17 109/70 97 10/31/19 11:33 10/31/19 11:33 10/31/19 11:33 10/31/19 11:33 10/31/19 11:33 Intake & Output 10/30/19 10/31/19 11/01/19 06:59 06:59 06:59 Intake Total 3900 4085 1452 Balance 3900 4085 1452 Weight 187 lb 13.341 oz 189 lb 13.088 oz General appearance: PRESENT: no acute distress, well-developed, well-nourished Head exam: PRESENT: atraumatic, normocephalic Eye exam: PRESENT: conjunctiva pink, EOMI, PERRLA. ABSENT: scleral icterus Ear exam: PRESENT: normal external ear exam Mouth exam: PRESENT: moist, tongue midline Neck exam: ABSENT: carotid bruit, JVD, lymphadenopathy, thyromegaly Respiratory exam: PRESENT: clear to auscultation sulema. ABSENT: rales, rhonchi, wheezes Cardiovascular exam: PRESENT: RRR. ABSENT: diastolic murmur, rubs, systolic murmur Pulses: PRESENT: normal dorsalis pedis pul GI/Abdominal exam: PRESENT: normal bowel sounds, soft. ABSENT: distended, guarding, mass, organolmegaly, rebound, tenderness Rectal exam: PRESENT: deferred Extremities exam: PRESENT: full ROM. ABSENT: calf tenderness, clubbing, pedal edema Neurological exam: PRESENT: alert, awake, oriented to person, oriented to place, oriented to time, oriented to situation, CN II-XII grossly intact. ABSENT: motor sensory deficit Results Laboratory Results: 10/31/19 04:47 10/31/19 04:47 10/31/19 10/31/19 04:47 04:47 WBC 12.2 H RBC 4.49 Hgb 12.9 L Hct 37.0 L MCV 82 MCH 28.7 MCHC 34.8 RDW 13.4 Plt Count 177 Seg Neutrophils % 82.4 H Sodium 134.9 L Potassium 3.8 Chloride 101 Carbon Dioxide 28 Anion Gap 6 BUN 10 Creatinine 0.76 Est GFR ( Amer) > 60 Glucose 95 Calcium 8.1 L Magnesium 2.3 Impressions: Abdomen/Pelvis CT 10/29/19 18:45 IMPRESSION: Moderate findings of pancreatitis. Mild upper abdominal ascites. Small bilateral pleural effusions. Chest X-Ray 10/30/19 08:59 IMPRESSION: Left basilar infiltrate either atelectasis or pneumonia. Assessment and Plan - Diagnosis (1) Acute pancreatitis Qualifiers: Pancreatitis type: alcohol induced Is this a current diagnosis for this admission?: Yes Plan: 10/30: Keep patient to NPO status today. Continue IV fluids and pain meds. 10/31: Currently NPO. Will advance diet to clear liquids. Will decrease IV fluids. - Plan Summary Summary: Patient is admitted to the medical floor where he will receive routine supportive and symptomatic cares. He will be treated with IV fluid using lactated Ringer's. He will be allowed to take clear liquids initially as tole rated and desired. He will be treated with IV Reglan and famotidine. When he is able to take and advanced diet he should receive pancreatic enzyme replacement with meals and oral sucralfate prior to meals. He will receive morphine sulfate 2 to 4 mg IV every 2 hours on an as-needed basis for pain control using a sliding scale for dosage. Serial laboratory determinations of CBCs, metabolic profiles, lipase levels, amylase levels and magnesium levels will be obtained as appropriate. - Time Time Spent with patient: 25-34 minutes
[2019-10-31] MEDS: MELATONIN 5 MG TABLET PO PRN (21:37)
[2019-11-01] MEDS: KETOROLAC TROMETHAMINE INJ/PF 30 MG/1 ML SDV IV PRN ×4 (04:17→20:44)
[2019-11-01] MEDS: DEXTROSE 5%-LACTATED RINGERS 1,000 ML IV PRN ×2 (04:17→22:19)
[2019-11-01 04:32] LABS: HEMATOCRIT 35.4 % (37.9-51.0); MEAN CORPUSCULAR HEMOGLOBIN 28.1 pg (27.0-33.4); MEAN CORPUSCULAR VOLUME 83 fl (80-97); PLATELET COUNT 229 10^3/uL (150-450); RED BLOOD COUNT 4.29 10^6/uL (4.35-5.55); RED CELL DISTRIBUTION WIDTH 13.2 % (11.5-14.0); WHITE BLOOD COUNT 14.6 10^3/uL (4.0-10.5)
[2019-11-01 04:52] LABS: ANION GAP 8 (5-19); BLOOD UREA NITROGEN 9 mg/dL (7-20); CARBON DIOXIDE 26 mmol/L (22-30); CHLORIDE 103 mmol/L (98-107); GLUCOSE 107 mg/dL (75-110); POTASSIUM 3.4 mmol/L (3.6-5.0)
[2019-11-01] MEDS: HEPARIN SOD (PORCINE) 5,000 UNIT/ML 1 ML VIAL SUBCUT SCH ×3 (05:21→22:15)
[2019-11-01] MEDS: DOCUSATE SODIUM 100 MG/10 ML UDC PO SCH ×2 (09:02→17:11)
[2019-11-01] MEDS: FAMOTIDINE INJ/PF 20 MG/2 ML SDV IV SCH ×2 (09:02→22:19)
[2019-11-01] MEDS: METOCLOPRAMIDE HCL INJ/PF 10 MG/2 ML SDV IV SCH ×4 (09:02→22:19)
--- NOTE | 2019-11-01 14:39 | PDOC PROGRESS REPORT ---
Subjective Progress Note for:: 11/01/19 Subjective:: This is a 29 yr old male who had a recent alcohol binge who subsequently developed abdominal pain. He was found to have acute pancreatitis. 10/30: Patient tried chicken broth this morning and reported increasing recurrence of epigastric pain and required IV pain meds. Will switch him to NPO status today. Continue IV fluids. 10/31: He did have a fever yesterday afternoon. Otherwise, no acute event overnight. He says that he feels better today and his abdominal pain has improved. No nausea or vomiting. Currently NPO. Will try to advance diet to clear liquids. Will decrease IV fluids. 11/01: Patient had a few episodes of intermittent abdominal pain overnight. He complained of recurrence of abdominal pain with chicken broth for breakfast this morning. Will place him back to NPO status today. Reason For Visit: ACUTE PANCREATITIS Physical Exam Vital Signs: Temp Pulse Resp BP Pulse Ox 98.5 F 65 17 119/65 99 11/01/19 12:02 11/01/19 12:02 11/01/19 12:02 11/01/19 12:02 11/01/19 12:02 Intake & Output 10/31/19 11/01/19 11/02/19 06:59 06:59 06:59 Intake Total 4085 3792 870 Balance 4085 3792 870 Weight 189 lb 13.088 oz 190 lb 7.67 oz General appearance: PRESENT: no acute distress, well-developed, well-nourished Head exam: PRESENT: atraumatic, normocephalic Eye exam: PRESENT: conjunctiva pink, EOMI, PERRLA. ABSENT: scleral icterus Ear exam: PRESENT: normal external ear exam Mouth exam: PRESENT: moist, tongue midline Neck exam: ABSENT: carotid bruit, JVD, lymphadenopathy, thyromegaly Respiratory exam: PRESENT: clear to auscultation sulema. ABSENT: rales, rhonchi, wheezes Cardiovascular exam: PRESENT: RRR. ABSENT: diastolic murmur, rubs, systolic murmur Pulses: PRESENT: normal dorsalis pedis pul GI/Abdominal exam: PRESENT: normal bowel sounds, soft. ABSENT: distended, guarding, mass, organolmegaly, rebound Rectal exam: PRESENT: deferred Extremities exam: PRESENT: full ROM. ABSENT: calf tenderness, clubbing, pedal edema Neurological exam: PRESENT: alert, awake, oriented to person, oriented to place, oriented to time, oriented to situation, CN II-XII grossly intact. ABSENT: motor sensory deficit Results Laboratory Results: 11/01/19 04:19 11/01/19 04:19 11/01/19 11/01/19 11/01/19 04:19 04:19 04:19 WBC 14.6 H RBC 4.29 L Hgb 12.0 L Hct 35.4 L MCV 83 MCH 28.1 MCHC 34.0 RDW 13.2 Plt Count 229 Sodium 136.8 L Potassium 3.4 L Chloride 103 Carbon Dioxide 26 Anion Gap 8 BUN 9 Creatinine 0.73 Est GFR ( Amer) > 60 Glucose 107 Calcium 8.0 L Magnesium 2.2 Lipase 508.8 H Impressions: Abdomen/Pelvis CT 10/29/19 18:45 IMPRESSION: Moderate findings of pancreatitis. Mild upper abdominal ascites. Small bilateral pleural effusions. Chest X-Ray 10/30/19 08:59 IMPRESSION: Left basilar infiltrate either atelectasis or pneumonia. Assessment and Plan - Diagnosis (1) Acute pancreatitis Qualifiers: Pancreatitis type: alcohol induced Is this a current diagnosis for this admission?: Yes Plan: 10/30: Keep patient to NPO status today. Continue IV fluids and pain meds. 10/31: Currently NPO. Will advance diet to clear liquids. Will decrease IV fluids. 11/01: Did not tolerate clears this morning. Will keep him NPO today. - Plan Summary Summary: Patient is admitted to the medical floor where he will receive routine supportive and symptomatic cares. He will be treated with IV fluid using lactated Ringer's. He will be allowed to take clear liquids initially as jj erated and desired. He will be treated with IV Reglan and famotidine. When he is able to take and advanced diet he should receive pancreatic enzyme replacement with meals and oral sucralfate prior to meals. He will receive morphine sulfate 2 to 4 mg IV every 2 hours on an as-needed basis for pain control using a sliding scale for dosage. Serial laboratory determinations of CBCs, metabolic profiles, lipase levels, amylase levels and magnesium levels will be obtained as appropriate. - Time Time Spent with patient: 15-24 minutes
[2019-11-01] MEDS: POTASSI CL 20 MEQ/50 ML RIDER 20 MEQ/50 ML RTUPB IV SCH ×2 (15:08→17:10)
[2019-11-01] MEDS: ACETAMINOPHEN 325 MG TABLET PO PRN (20:45)
[2019-11-01] MEDS: MELATONIN 5 MG TABLET PO PRN (22:19)
[2019-11-02] MEDS: KETOROLAC TROMETHAMINE INJ/PF 30 MG/1 ML SDV IV PRN ×3 (04:51→21:18)
[2019-11-02] MEDS: HEPARIN SOD (PORCINE) 5,000 UNIT/ML 1 ML VIAL SUBCUT SCH ×3 (05:18→21:21)
[2019-11-02] MEDS: METOCLOPRAMIDE HCL INJ/PF 10 MG/2 ML SDV IV SCH ×4 (08:03→21:21)
[2019-11-02] MEDS: FAMOTIDINE INJ/PF 20 MG/2 ML SDV IV SCH ×2 (10:02→21:21)
[2019-11-02] MEDS: DOCUSATE SODIUM 100 MG/10 ML UDC PO SCH ×3 (10:02→17:10)
[2019-11-02] MEDS ORDERED: POTASSIUM CHLORIDE 20 MEQ PACKET PO ONE (11:00)
--- NOTE | 2019-11-02 11:47 | RADIOLOGY REPORT (SQ) ---
EXAM DESCRIPTION: CHEST SINGLE VIEW COMPLETED DATE/TIME: 11/02/2019 11:13 am REASON FOR STUDY: reassess right lower lobe pneumonia COMPARISON: 10/30/2019 EXAM PARAMETERS: NUMBER OF VIEWS: One view. TECHNIQUE: Single frontal radiographic view of the chest acquired. RADIATION DOSE: NA LIMITATIONS: None. FINDINGS: LUNGS AND PLEURA: Improved aeration with residual small left pleural effusion and associat ed airspace disease in the left lower lobe. MEDIASTINUM AND HILAR STRUCTURES: No masses. Contour normal. HEART AND VASCULAR STRUCTURES: Heart normal in size. Normal vasculature. BONES: No acute findings. HARDWARE: None in the chest. OTHER: No other significant finding. IMPRESSION: Improving pneumonia left lower lobe. TECHNICAL DOCUMENTATION: JOB ID: [id number] [employer]- All Rights Reserved Reading location - IP/workstation name: [email or web address]
[2019-11-02] MEDS: DEXTROSE 5%-LACTATED RINGERS 1,000 ML IV PRN (12:40)
[2019-11-02] MEDS: CEFTRIAXONE 1 GM/D5W RTU 1 GM/50 ML RTUPB IV SCH (12:52)
--- NOTE | 2019-11-02 12:56 | PDOC PROGRESS REPORT ---
Subjective Progress Note for:: 11/02/19 Subjective:: This is a 29 yr old male who had a recent alcohol binge who subsequently developed abdominal pain. He was found to have acute pancreatitis. 10/30: Patient tried chicken broth this morning and reported increasing recurrence of epigastric pain and required IV pain meds. Will switch him to NPO status today. Continue IV fluids. 10/31: He did have a fever yesterday afternoon. Otherwise, no acute event overnight. He says that he feels better today and his abdominal pain has improved. No nausea or vomiting. Currently NPO. Will try to advance diet to clear liquids. Will decrease IV fluids. 11/01: Patient had a few episodes of intermittent abdominal pain overnight. He complained of recurrence of abdominal pain with chicken broth for breakfast this morning. Will place him back to NPO status today. 11/02: No acute event overnight. But he does report that he had continued intermittent abdominal pains last night. He does not have any nausea or vomiting and is going to try clear liquids again today. Will try to advance his diet to clears again today. Reason For Visit: ACUTE PANCREATITIS Physical Exam Vital Signs: Temp Pulse Resp BP Pulse Ox 100.0 F 75 17 115/69 98 11/02/19 10:50 11/02/19 10:50 11/02/19 10:50 11/02/19 10:50 11/02/19 10:50 Intake & Output 11/01/19 11/02/19 11/03/19 06:59 06:59 06:59 Intake Total 3792 2343 392 Balance 3792 2343 392 Weight 190 lb 7.67 oz 187 lb 13.341 oz General appearance: PRESENT: no acute distress, well-developed, well-nourished Head exam: PRESENT: atraumatic, normocephalic Eye exam: PRESENT: conjunctiva pink, EOMI, PERRLA. ABSENT: scleral icterus Ear exam: PRESENT: normal external ear exam Mouth exam: PRESENT: moist, tongue midline Neck exam: ABSENT: carotid bruit, JVD, lymphadenopathy, thyromegaly Respiratory exam: PRESENT: clear to auscultation sulema. ABSENT: rales, rhonchi, wheezes Cardiovascular exam: PRESENT: RRR. ABSENT: diastolic murmur, rubs, systolic murmur Pulses: PRESENT: normal dorsalis pedis pul GI/Abdominal exam: PRESENT: normal bowel sounds, soft. ABSENT: distended, guarding, mass, organolmegaly, rebound, tenderness Rectal exam: PRESENT: deferred Extremities exam: PRESENT: full ROM. ABSENT: calf tenderness, clubbing, pedal edema Neurological exam: PRESENT: alert, awake, oriented to person, oriented to place, oriented to time, oriented to situation, CN II-XII grossly intact. ABSENT: motor sensory deficit Results Laboratory Results: 11/01/19 04:19 11/01/19 04:19 Impressions: Abdomen/Pelvis CT 10/29/19 18:45 IMPRESSION: Moderate findings of pancreatitis. Mild upper abdominal ascites. Small bilateral pleural effusions. Chest X-Ray 11/02/19 00:00 IMPRESSION: Improving pneumonia left lower lobe. Assessment and Plan - Diagnosis (1) Acute pancreatitis Qualifiers: Pancreatitis type: alcohol induced Is this a current diagnosis for this admission?: Yes Plan: 10/30: Keep patient to NPO status today. Continue IV fluids and pain meds. 10/31: Currently NPO. Will advance diet to clear liquids. Will decrease IV fluids. 11/01: Did not tolerate clears this morning. Will keep him NPO today. 11/02: Will try to advance to clear liquid diet again today. If he continues to have recurrent abdominal pain, will repeat CT of the abdomen and pelvis. (2) Pneumonia Is this a current diagnosis for this admission?: Yes Plan: Started on Rocephin. - Plan Summary Summary: Patient is admitted to the medical floor where he will receive routine supportive and symptomatic cares. He will be treated with IV fluid using lactated Ringer's. He will be allowed to take clear liquids initially as tolerated and desired. He will be treated with IV Reglan and famotidine. When he is able to take and advanced diet he should receive pancreatic enzyme replacement with meals and oral sucralfate prior to meals. He will receive morphine sulfate 2 to 4 mg IV every 2 hours on an as-needed basis for pain control using a sliding scale for dosage. Serial laboratory determinations of CBCs, metabolic profiles, lipase levels, amylase levels and magnesium levels will be obtained as appropriate. - Time Time Spent with patient: 25-34 minutes
[2019-11-02 13:36] LABS: HEMATOCRIT 35.8 % (37.9-51.0); HEMOGLOBIN 12.3 g/dL (13.5-17.0); MEAN CORPUSCULAR HEMOGLOBIN 28.3 pg (27.0-33.4); MEAN CORPUSCULAR HGB CONC 34.4 g/dL (32.0-36.0); MEAN CORPUSCULAR VOLUME 82 fl (80-97); PLATELET COUNT 289 10^3/uL (150-450); RED BLOOD COUNT 4.35 10^6/uL (4.35-5.55); RED CELL DISTRIBUTION WIDTH 13.1 % (11.5-14.0); WHITE BLOOD COUNT 16.1 10^3/uL (4.0-10.5)
[2019-11-02 13:58] LABS: ABSOLUTE LYMPHOCYTES# (MANUAL) 2.3 10^3/uL (0.5-4.7); ABSOLUTE MONOCYTES # (MANUAL) 2.1 10^3/uL (0.1-1.4); BASOPHILS % (MANUAL) 0 % (0-2); EOSINOPHILS % (MANUAL) 0 % (0-6); LYMPHOCYTES % (MANUAL) 14 % (13-45); MONOCYTES % (MANUAL) 13 % (3-13); SEGMENTED NEUTROPHILS % (MAN) 73 % (42-78); TOTAL CELLS COUNTED 100
[2019-11-02 13:59] LABS: ANION GAP 9 (5-19); BLOOD UREA NITROGEN 10 mg/dL (7-20); CALCIUM 8.3 mg/dL (8.4-10.2); CARBON DIOXIDE 23 mmol/L (22-30); CHLORIDE 104 mmol/L (98-107); GLUCOSE 102 mg/dL (75-110); POTASSIUM 4.1 mmol/L (3.6-5.0)
[2019-11-02 14:03] LABS: PLATELET COMMENT ADEQUATE; POLYCHROMASIA SLIGHT; TOXIC GRANULATION SLIGHT
[2019-11-02] MEDS: MELATONIN 5 MG TABLET PO PRN (21:25)
[2019-11-03] MEDS: DEXTROSE 5%-LACTATED RINGERS 1,000 ML IV PRN ×3 (01:35→21:21)
[2019-11-03] MEDS: HEPARIN SOD (PORCINE) 5,000 UNIT/ML 1 ML VIAL SUBCUT SCH ×3 (05:08→21:20)
[2019-11-03] MEDS: KETOROLAC TROMETHAMINE INJ/PF 30 MG/1 ML SDV IV PRN (05:24)
[2019-11-03] MEDS: CEFTRIAXONE 1 GM/D5W RTU 1 GM/50 ML RTUPB IV SCH (09:43)
[2019-11-03] MEDS: DOCUSATE SODIUM 100 MG/10 ML UDC PO SCH ×3 (09:45→17:22)
[2019-11-03] MEDS: FAMOTIDINE INJ/PF 20 MG/2 ML SDV IV SCH ×2 (10:08→21:21)
[2019-11-03] MEDS: METOCLOPRAMIDE HCL INJ/PF 10 MG/2 ML SDV IV SCH ×4 (10:08→21:21)
--- NOTE | 2019-11-03 13:19 | PDOC PROGRESS REPORT ---
Subjective Progress Note for:: 11/03/19 Subjective:: This is a 29 yr old male who had a recent alcohol binge who subsequently developed abdominal pain. He was found to have acute pancreatitis. 10/30: Patient tried chicken broth this morning and reported increasing recurrence of epigastric pain and required IV pain meds. Will switch him to NPO status today. Continue IV fluids. 10/31: He did have a fever yesterday afternoon. Otherwise, no acute event overnight. He says that he feels better today and his abdominal pain has improved. No nausea or vomiting. Currently NPO. Will try to advance diet to clear liquids. Will decrease IV fluids. 11/01: Patient had a few episodes of intermittent abdominal pain overnight. He complained of recurrence of abdominal pain with chicken broth for breakfast this morning. Will place him back to NPO status today. 11/02: No acute event overnight. But he does report that he had continued intermittent abdominal pains last night. He does not have any nausea or vomiting and is going to try clear liquids again today. Will try to advance his diet to clears again today. 11/03: No acute issues. Patient reports that his abdominal pain has improved overnight. His he was able to tolerate clear liquids last night. Will advance diet to full liquid today and possibly later to soft diet tonight. Reason For Visit: ACUTE PANCREATITIS Physical Exam Vital Signs: Temp Pulse Resp BP Pulse Ox 98.9 F 65 16 129/68 H 100 11/03/19 10:55 11/03/19 10:55 11/03/19 10:55 11/03/19 10:55 11/03/19 10:55 Intake & Output 11/02/19 11/03/19 11/04/19 06:59 06:59 06:59 Intake Total 2343 2076 Output Total 0 Balance 2343 2076 Weight 187 lb 13.341 oz 187 lb 9.814 oz 187 lb 9.814 oz General appearance: PRESENT: no acute distress, well-developed, well-nourished Head exam: ABSENT: atraumatic, normocephalic, other Eye exam: PRESENT: conjunctiva pink, EOMI, PERRLA. ABSENT: scleral icterus Ear exam: PRESENT: normal external ear exam Mouth exam: PRESENT: moist, tongue midline Neck exam: ABSENT: carotid bruit, JVD, lymphadenopathy, thyromegaly Respiratory exam: PRESENT: clear to auscultation sulema. ABSENT: rales, rhonchi, wheezes Cardiovascular exam: PRESENT: RRR. ABSENT: diastolic murmur, rubs, systolic murmur Pulses: PRESENT: normal dorsalis pedis pul GI/Abdominal exam: PRESENT: normal bowel sounds, soft. ABSENT: distended, guarding, mass, organolmegaly, rebound, tenderness Rectal exam: PRESENT: deferred Extremities exam: PRESENT: full ROM. ABSENT: calf tenderness, clubbing, pedal edema Neurological exam: PRESENT: alert, awake, oriented to person, oriented to place, oriented to time, oriented to situation, CN II-XII grossly intact. ABSENT: motor sensory deficit Results Laboratory Results: 11/02/19 13:15 11/02/19 13:15 11/02/19 11/02/19 13:15 13:15 WBC 16.1 H RBC 4.35 Hgb 12.3 L Hct 35.8 L MCV 82 MCH 28.3 MCHC 34.4 RDW 13.1 Plt Count 289 Seg Neutrophils % Not Reportable Sodium 136.3 L Potassium 4.1 Chloride 104 Carbon Dioxide 23 Anion Gap 9 BUN 10 Creatinine 0.67 Est GFR ( Amer) > 60 Glucose 102 Calcium 8.3 L Impressions: Abdomen/Pelvis CT 10/29/19 18:45 IMPRESSION: Moderate findings of pancreatitis. Mild upper abdominal ascites. Small bilateral pleural effusions. Chest X-Ray 11/02/19 00:00 IMPRESSION: Improving pneumonia left lower lobe. Assessment and Plan - Diagnosis (1) Acute pancreatitis Qualifiers: Pancreatitis type: alcohol induced Is this a current diagnosis for this admission?: Yes Plan: 10/30: Keep patient to NPO status today. Continue IV fluids and pain meds. 10/31: Currently NPO. Will advance diet to clear liquids. Will decrease IV fluids. 11/01: Did not tolerate clears this morning. Will keep him NPO today. 11/02: Will try to advance to clear liquid diet again today. If he continues to have recurrent abdominal pain, will repeat CT of the abdomen and pelvis. : Improving. Will advance diet to full liquid today and possibly later to soft diet tonight. (2) Pneumonia Is this a current diagnosis for this admission?: Yes Plan: Continue Rocephin. - Plan Summary Summary: Patient is admitted to the medical floor where he will receive routine supportive and symptomatic cares. He will be treated with IV fluid using lactated Ringer's. He will be allowed to take clear liquids initially as tolerated and desired. He will be treated with IV Reglan and famotidine. When he is able to take and advanced diet he should receive pancreatic enzyme replacement with meals and oral sucralfate prior to meals. He will receive morphine sulfate 2 to 4 mg IV every 2 hours on an as-needed basis for pain control using a sliding scale for dosage. Serial laboratory determinations of CBCs, metabolic profiles, lipase levels, amylase levels and magnesium levels will be obtained as appropriate. - Time Time Spent with patient: 25-34 minutes
[2019-11-03] MEDS: ACETAMINOPHEN 325 MG TABLET PO PRN (15:22)
[2019-11-03] MEDS: MELATONIN 5 MG TABLET PO PRN (21:22)
[2019-11-04] MEDS: HEPARIN SOD (PORCINE) 5,000 UNIT/ML 1 ML VIAL SUBCUT SCH ×3 (05:06→22:44)
[2019-11-04] MEDS: METOCLOPRAMIDE HCL INJ/PF 10 MG/2 ML SDV IV SCH ×4 (07:35→22:44)
[2019-11-04 08:56] LABS: HEMATOCRIT 36.7 % (37.9-51.0); HEMOGLOBIN 12.2 g/dL (13.5-17.0); MEAN CORPUSCULAR HEMOGLOBIN 27.8 pg (27.0-33.4); MEAN CORPUSCULAR HGB CONC 33.3 g/dL (32.0-36.0); MEAN CORPUSCULAR VOLUME 84 fl (80-97); PLATELET COUNT 372 10^3/uL (150-450); RED BLOOD COUNT 4.39 10^6/uL (4.35-5.55); RED CELL DISTRIBUTION WIDTH 13.4 % (11.5-14.0); WHITE BLOOD COUNT 21.4 10^3/uL (4.0-10.5)
[2019-11-04 09:04] LABS: ANION GAP 10 (5-19); BLOOD UREA NITROGEN 8 mg/dL (7-20); CALCIUM 8.2 mg/dL (8.4-10.2); CARBON DIOXIDE 26 mmol/L (22-30); CHLORIDE 101 mmol/L (98-107); GLUCOSE 132 mg/dL (75-110)
[2019-11-04 09:05] LABS: POTASSIUM 3.3 mmol/L (3.6-5.0)
[2019-11-04 09:29] LABS: ABSOLUTE LYMPHOCYTES# (MANUAL) 2.6 10^3/uL (0.5-4.7); ABSOLUTE MONOCYTES # (MANUAL) 1.3 10^3/uL (0.1-1.4); BAND NEUTROPHILS % (MANUAL) 1 % (3-5); BASOPHILS % (MANUAL) 0 % (0-2); EOSINOPHILS % (MANUAL) 2 % (0-6); LYMPHOCYTES % (MANUAL) 12 % (13-45); MONOCYTES % (MANUAL) 6 % (3-13); SEGMENTED NEUTROPHILS % (MAN) 79 % (42-78); TOTAL CELLS COUNTED 100
[2019-11-04 09:30] LABS: PLATELET COMMENT ADEQUATE; TOXIC GRANULATION 2+; TOXIC VACUOLATION PRESENT
[2019-11-04] MEDS: DOCUSATE SODIUM 100 MG/10 ML UDC PO SCH ×2 (09:47→17:08)
[2019-11-04] MEDS: FAMOTIDINE INJ/PF 20 MG/2 ML SDV IV SCH ×2 (09:48→22:44)
[2019-11-04] MEDS: CEFTRIAXONE 1 GM/D5W RTU 1 GM/50 ML RTUPB IV SCH (09:48)
[2019-11-04] MEDS ORDERED: POTASSIUM CHLORIDE 10 MEQ TABLET.ER PO ONE (10:45)
--- NOTE | 2019-11-04 11:15 | RADIOLOGY REPORT (SQ) ---
EXAM DESCRIPTION: CT ABD/PELVIS WITH IV ONLY COMPLETED DATE/TIME: 11/04/2019 10:58 am REASON FOR STUDY: reassess pamcreatitis COMPARISON: 10/29/2019 TECHNIQUE: CT scan of the abdomen and pelvis performed using helical scanning technique with dynamic intravenous contrast injection. No oral contrast. Images reviewed with lung, soft tissue, and bone windows. Reconstructed coronal and sagittal MPR images reviewed. Delayed images for evaluation of the urinary system also acquired. All images stored on PACS. All CT scanners at this facility use dose modulation, iterative reconstruction, and/or weight based d osing when appropriate to reduce radiation dose to as low as reasonably achievable (ALARA). [facility]: Dose Right [facility]: CareDose [facility]: Dose Right [facility]: Teradose 4D [facility]: [employer] CONTRAST TYPE AND DOSE: contrast/concentration: Isovue 350.00 mg/ml; Total Contrast Delivered: 95.0 ml; Total Saline Delivered: 71.0 ml RENAL FUNCTION: GFR > 60. RADIATION DOSE: CT Rad equipment meets quality standard of care and radiation dose reduction techniq ues were employed. CTDIvol: 6.4 - 9.0 mGy. DLP: 858 mGy-cm.. LIMITATIONS: None. FINDINGS: LOWER CHEST: Pleural effusions, left greater than right. LIVER: Normal size. No masses. No dilated ducts. SPLEEN: Normal size. No focal lesions. PANCREAS: Heterogeneous enhancement pattern without definitive necrosis. Inflammation in the lesser sac fat and left anterior pararenal space. GALLBLADDER: No identified stones by CT criteria. No inflammatory changes to suggest cholecystitis. ADRENAL GLANDS: No significant masses or asymmetry. RIGHT KIDNEY AND URETER: No solid masses. No significant calcifications. No hydronephrosis or hyd roureter. LEFT KIDNEY AND URETER: No solid masses. No significant calcifications. No hydronephrosis or hydr oureter. AORTA AND VESSELS: No aneurysm. No dissection. Renal arteries, SMA, celiac without stenosis. RETROPERITONEUM: See above. BOWEL AND PERITONEAL CAVITY: No masses or inflammatory changes. No free fluid or peritoneal masses. APPENDIX: Not visualized. PELVIS: No mass. No free fluid. Normal bladder. ABDOMINAL WALL: No masses. No hernias. BONES: No significant or acute findings. OTHER: No other significant finding. IMPRESSION: Persistent acute pancreatitis. No evidence of necrosis or pseudocyst formation. TECHNICAL DOCUMENTATION: JOB ID: [id number] Quality ID # [id number]: Final reports with documentation of one or more dose reduction techniques (e.g., Au tomated exposure control, adjustment of the mA and/or kV according to patient size, use of iterative reconstruction technique) 2010 [employer]- All Rights Reserved Reading location - IP/workstation name: [email or web address]
--- NOTE | 2019-11-04 13:40 | PDOC PROGRESS REPORT ---
Subjective Progress Note for:: 11/04/19 Subjective:: This is a 29 yr old male who had a recent alcohol binge who subsequently developed abdominal pain. He was found to have acute pancreatitis. 10/30: Patient tried chicken broth this morning and reported increasing recurrence of epigastric pain and required IV pain meds. Will switch him to NPO status today. Continue IV fluids. 10/31: He did have a fever yesterday afternoon. Otherwise, no acute event overnight. He says that he feels better today and his abdominal pain has improved. No nausea or vomiting. Currently NPO. Will try to advance diet to clear liquids. Will decrease IV fluids. 11/01: Patient had a few episodes of intermittent abdominal pain overnight. He complained of recurrence of abdominal pain with chicken broth for breakfast this morning. Will place him back to NPO status today. 11/02: No acute event overnight. But he does report that he had continued intermittent abdominal pains last night. He does not have any nausea or vomiting and is going to try clear liquids again today. Will try to advance his diet to clears again today. 11/03: No acute issues. Patient reports that his abdominal pain has improved overnight. His he was able to tolerate clear liquids last night. Will advance diet to full liquid today and possibly later to soft diet tonight. 11/04: He had a fever of 100.1 last night. He tolerated a soft diet well last night. He says his abdominal pain has significantly improved. WBC significantly trended up to 20,[address] of the pelvis shows persistent acute pancreatitis. Clinically, he continues to improve. Will advance diet further to regular diet today. He does have pleural effusions L>R, likely related to the acute pancreatitis and possible pneumonia. Repeat CXR tomorrow morning. If he continues to have persistent fever and leukocytosis, may have to consider the possibility of early or developing empyema. Reason For Visit: ACUTE PANCREATITIS Physical Exam Vital Signs: Temp Pulse Resp BP Pulse Ox 99.3 F 70 16 115/68 96 11/04/19 07:42 11/04/19 07:42 11/04/19 07:42 11/04/19 07:42 11/04/19 07:42 Intake & Output 11/03/19 11/04/19 11/05/19 06:59 06:59 06:59 Intake Total 2076 1562 170 Output Total 0 0 Balance 2076 156 170 Weight 187 lb 9.814 oz 185 lb 10.067 oz General appearance: PRESENT: no acute distress, well-developed, well-nourished Head exam: PRESENT: atraumatic, normocephalic Eye exam: PRESENT: conjunctiva pink, EOMI, PERRLA. ABSENT: scleral icterus Ear exam: PRESENT: normal external ear exam Mouth exam: PRESENT: moist, tongue midline Neck exam: ABSENT: carotid bruit, JVD, lymphadenopathy, thyromegaly Respiratory exam: PRESENT: clear to auscultation sulema, decreased breath sounds - left base. ABSENT: rales, rhonchi, wheezes Pulses: PRESENT: normal dorsalis pedis pul GI/Abdominal exam: PRESENT: normal bowel sounds, soft. ABSENT: distended, guarding, mass, organolmegaly, rebound, tenderness Rectal exam: PRESENT: deferred Extremities exam: PRESENT: full ROM. ABSENT: calf tenderness, clubbing, pedal edema Neurological exam: PRESENT: alert, awake, oriented to person, oriented to place, oriented to time, oriented to situation, CN II-XII grossly intact. ABSENT: motor sensory deficit Results Laboratory Results: 11/04/19 08:40 11/04/19 08:40 11/04/19 11/04/19 08:40 08:40 WBC 21.4 H RBC 4.39 Hgb 12.2 L Hct 36.7 L MCV 84 MCH 27.8 MCHC 33.3 RDW 13.4 Plt Count 372 Seg Neutrophils % Not Reportable Sodium 136.9 L Potassium 3.3 L Chloride 101 Carbon Dioxide 26 Anion Gap 10 BUN 8 Creatinine 0.72 Est GFR ( Amer) > 60 Glucose 132 H Calcium 8.2 L Impressions: Chest X-Ray 11/02/19 00:00 IMPRESSION: Improving pneumonia left lower lobe. Abdomen/Pelvis CT 11/04/19 10:05 IMPRESSION: Persistent acute pancreatitis. No evidence of necrosis or pseudocyst formation. Assessment and Plan - Diagnosis (1) Acute pancreatitis Qualifiers: Pancreatitis type: alcohol induced Is this a current diagnosis for this admission?: Yes Plan: 10/30: Keep patient to NPO status today. Continue IV fluids and pain meds. 10/31: Currently NPO. Will advance diet to clear liquids. Will decrease IV fluids. 11/01: Did not tolerate clears this morning. Will keep him NPO today. 11/02: Will try to advance to clear liquid diet again today. If he continues to have recurrent abdominal pain, will repeat CT of the abdomen and pelvis. 11/03: Improving. Will advance diet to full liquid today and possibly later to soft diet tonight. 11/04: Continue to improve. Advance diet today. (2) Pneumonia Is this a current diagnosis for this admission?: Yes Plan: Continue Rocephin. (3) Pleural effusion Is this a current diagnosis for this admission?: Yes Plan: 11/04: He had a fever of 100.1 last night. He tolerated a soft diet well last night. He says his abdominal pain has significantly improved. WBC significantly trended up to 20,[address] of the pelvis shows persistent acute pancreatitis. Clinically, he continues to improve. Will advance diet further to regular diet today. He does have pleural effusions L>R, likely related to the acute pancreatitis and possible pneumonia. Repeat CXR tomorrow morning. If he continues to have persistent fever and leukocytosis, may have to consider the possibility of early or developing empyema. - Plan Summary Summary: Patient is admitted to the medical floor where he will receive routine supportive and symptomatic cares. He will be treated with IV fluid using lactat ed Ringer's. He will be allowed to take clear liquids initially as tolerated and desired. He will be treated with IV Reglan and famotidine. When he is able to take and advanced diet he should receive pancreatic enzyme replacement with meals and oral sucralfate prior to meals. He will receive morphine sulfate 2 to 4 mg IV every 2 hours on an as-needed basis for pain control using a sliding scale for dosage. Serial laboratory determinations of CBCs, metabolic profiles, lipase levels, amylase levels and magnesium levels will be obtained as appropriate. - Time Time Spent with patient: 25-34 minutes
[2019-11-04] MEDS: MELATONIN 5 MG TABLET PO PRN (22:45)
[2019-11-05 05:26] LABS: HEMATOCRIT 37.1 % (37.9-51.0); HEMOGLOBIN 12.3 g/dL (13.5-17.0); MEAN CORPUSCULAR HEMOGLOBIN 27.7 pg (27.0-33.4); MEAN CORPUSCULAR HGB CONC 33.2 g/dL (32.0-36.0); MEAN CORPUSCULAR VOLUME 84 fl (80-97); PLATELET COUNT 380 10^3/uL (150-450); RED BLOOD COUNT 4.44 10^6/uL (4.35-5.55); RED CELL DISTRIBUTION WIDTH 13.7 % (11.5-14.0); WHITE BLOOD COUNT 21.4 10^3/uL (4.0-10.5)
[2019-11-05 05:41] LABS: ANION GAP 12 (5-19); BLOOD UREA NITROGEN 8 mg/dL (7-20); CALCIUM 8.6 mg/dL (8.4-10.2); CARBON DIOXIDE 26 mmol/L (22-30); CHLORIDE 100 mmol/L (98-107); GLUCOSE 90 mg/dL (75-110); POTASSIUM 3.8 mmol/L (3.6-5.0)
[2019-11-05] MEDS: HEPARIN SOD (PORCINE) 5,000 UNIT/ML 1 ML VIAL SUBCUT SCH ×3 (05:41→22:00)
[2019-11-05 06:01] LABS: ABSOLUTE LYMPHOCYTES# (MANUAL) 1.7 10^3/uL (0.5-4.7); ABSOLUTE MONOCYTES # (MANUAL) 1.1 10^3/uL (0.1-1.4); BAND NEUTROPHILS % (MANUAL) 5 % (3-5); BASOPHILS % (MANUAL) 0 % (0-2); EOSINOPHILS % (MANUAL) 0 % (0-6); LYMPHOCYTES % (MANUAL) 8 % (13-45); METAMYELOCYTES % (MANUAL) 1 % (0-1); MONOCYTES % (MANUAL) 5 % (3-13); SEGMENTED NEUTROPHILS % (MAN) 81 % (42-78); TOTAL CELLS COUNTED 100
[2019-11-05 06:02] LABS: ANISOCYTOSIS 1+; PLATELET COMMENT ADEQUATE; POLYCHROMASIA 1+
[2019-11-05] MEDS: METOCLOPRAMIDE HCL INJ/PF 10 MG/2 ML SDV IV SCH ×4 (09:39→22:00)
[2019-11-05] MEDS: CEFTRIAXONE 1 GM/D5W RTU 1 GM/50 ML RTUPB IV SCH (09:39)
[2019-11-05] MEDS: FAMOTIDINE INJ/PF 20 MG/2 ML SDV IV SCH ×2 (09:39→22:00)
[2019-11-05] MEDS: DOCUSATE SODIUM 100 MG/10 ML UDC PO SCH ×2 (09:39→18:08)
--- NOTE | 2019-11-05 11:14 | PDOC PROGRESS REPORT ---
Subjective Progress Note for:: 11/05/19 Subjective:: 29 yr old male who had a recent alcohol binge who subsequently developed abdominal pain. He was found to have acute pancreatitis. 10/30: Patient tried chicken broth this morning and reported increasing recurrence of epigastric pain and required IV pain meds. Will switch him to NPO status today. Continue IV fluids. 10/31: He did have a fever yesterday afternoon. Otherwise, no acute event overnight. He says that he feels better today and his abdominal pain has impr ciar. No nausea or vomiting. Currently NPO. Will try to advance diet to clear liquids. Will decrease IV fluids. 11/01: Patient had a few episodes of intermittent abdominal pain overnight. He complained of recurrence of abdominal pain with chicken broth for breakfast this morning. Will place him back to NPO status today. 11/02: No acute event overnight. But he does report that he had continued intermittent abdominal pains last night. He does not have any nausea or vomiting and is going to try clear liquids again today. Will try to advance his diet to clears again today. 11/03: No acute issues. Patient reports that his abdominal pain has improved overnight. His he was able to tolerate clear liquids last night. Will advance diet to full liquid today and possibly later to soft diet tonight. 11/04: He had a fever of 100.1 last night. He tolerated a soft diet well last night. He says his abdominal pain has significantly improved. WBC significantly trended up to 20,[address] of the pelvis shows persistent acute pancreatitis. Clinically, he continues to improve. Will advance diet further to regular diet today. He does have pleural effusions L>R, likely related to the acute pancreatitis and possible pneumonia. Repeat CXR tomorrow morning. If he continues to have persistent fever and leukocytosis, may have to consider the possibility of early or developing empyema. 11/05/[id number]-[place]qli-old male with recent history of alcohol binge admitted for severe abdominal pain found to have acute pancreatitis. Repeat CT scan of the abdomen indicates persistent of acute pancreatitis. Latest lipase level is 942. He is on a regular diet now. WBC count is 21,400 and T-max is 99.5. Plan is to repeat the labs tomorrow if the WBC count is persisting or going up or pat ient continues to have persistent fever if the CAT scan of the chest suggestive of empyema consultation with interventional radiology will be requested. Patient is comfortably in the bed communicating well. Not in distress. Reason For Visit: ACUTE PANCREATITIS Physical Exam Vital Signs: Temp Pulse Resp BP Pulse Ox 98.4 F 77 16 117/69 97 11/05/19 08:32 11/05/19 08:32 11/05/19 08:32 11/05/19 08:32 11/05/19 08:32 Intake & Output 11/04/19 11/05/19 11/06/19 06:59 06:59 06:59 Intake Total 1562 1226 Output Total 0 Balance 1562 1226 Weight 84.2 kg 84.2 kg General appearance: PRESENT: no acute distress, well-developed, well-nourished Head exam: PRESENT: atraumatic Eye exam: PRESENT: PERRLA Mouth exam: PRESENT: moist, tongue midline Neck exam: ABSENT: carotid bruit, JVD, lymphadenopathy, thyromegaly Respiratory exam: PRESENT: clear to auscultation sulema. ABSENT: rales, rhonchi, wheezes Cardiovascular exam: PRESENT: RRR. ABSENT: diastolic murmur, rubs, systolic murmur Vascular exam: PRESENT: normal capillary refill GI/Abdominal exam: PRESENT: normal bowel sounds, soft. ABSENT: distended, guarding, mass, organolmegaly, rebound, tenderness Rectal exam: PRESENT: deferred Extremities exam: PRESENT: full ROM. ABSENT: calf tenderness, clubbing, pedal edema Neurological exam: PRESENT: alert, awake, oriented to person, oriented to place, oriented to time, oriented to situation, CN II-XII grossly intact. ABSENT: motor sensory deficit Psychiatric exam: PRESENT: appropriate affect, normal mood. ABSENT: homicidal ideation, suicidal ideation Results Laboratory Results: 11/05/19 04:42 11/05/19 04:42 11/04/19 11/05/19 11/05/19 14:50 04:42 04:42 WBC 21.4 H RBC 4.44 Hgb 12.3 L Hct 37.1 L MCV 84 MCH 27.7 MCHC 33.2 RDW 13.7 Plt Count 380 Seg Neutrophils % Not Reportable Sodium 137.7 Potassium 3.7 3.8 Chloride 100 Carbon Dioxide 26 Anion Gap 12 BUN 8 Creatinine 0.77 Est GFR ( Amer) > 60 Glucose 90 Calcium 8.6 Lipase 954.4 H 10/30/19 18:30 Blood Blood Culture - Final NO GROWTH IN 5 DAYS 10/30/19 16:18 Blood Blood Culture - Final NO GROWTH IN 5 DAYS Impressions: Chest X-Ray 11/02/19 00:00 IMPRESSION: Improving pneumonia left lower lobe. Abdomen/Pelvis CT 11/04/19 10:05 IMPRESSION: Persistent acute pancreatitis. No evidence of necrosis or pseudocyst formation. Assessment and Plan - Diagnosis (1) Acute pancreatitis Qualifiers: Pancreatitis type: alcohol induced Is this a current diagnosis for this admission?: Yes Plan: 10/30: Keep patient to NPO status today. Continue IV fluids and pain meds. 10/31: Currently NPO. Will advance diet to clear liquids. Will decrease IV fluids. 11/01: Did not tolerate clears this morning. Will keep him NPO today. 11/02: Will try to advance to clear liquid diet again today. If he continues to have recurrent abdominal pain, will repeat CT of the abdomen and pelvis. 11/03: Improving. Will advance diet to full liquid today and possibly later to soft diet tonight. 11/04: Continue to improve. Advance diet today. 2019 patient is on regular diet now recent lipase level is 954 with a WBC count of 21,400. Patient is presently on IV Rocephin. Plan is to repeat lipase levels on labs tomorrow. CT chest was done today results are pending. (2) Pneumonia Is this a current diagnosis for this admission?: Yes Plan: Continue Rocephin. 2019-patient is getting antibiotic therapy IV Rocephin for presumed community-acquired pneumonia. CT chest report is pending. (3) Pleural effusion Is this a current diagnosis for this admission?: Yes Plan: 11/04: He had a fever of 100.1 last night. He tolerated a soft diet well last night. He says his abdominal pain has significantly improved. WBC significantly trended up to 20,[address] of the pelvis shows persistent acute pancreatitis. Clinically, he continues to improve. Will advance diet further to regular diet today. He does have pleural effusions L>R, likely related to the acute pancreatitis and possible pneumonia. Repeat CXR tomorrow morning. If he continues to have persistent fever and leukocytosis, may have to consider the possibility of early or developing empyema. 11/05/2019 T-max is 99.5 with a WBC count of 21,400 denies any shortness of breath pulse ox is 96% on room air. Plan is to repeat the labs tomorrow and CT chest report is pending today. Plan is to add azithromycin to the present antibiotic therapy. - Plan Summary Summary: Patient is admitted to the medical floor where he will receive routine supportive and symptomatic cares. He will be treated with IV fluid using lactated Ringer's. He will be allowed to take clear liquids initially as tolerated and desired. He will be treated with IV Reglan and famotidine. When he is able to take and advanced diet he should receive pancreatic enzyme replacement with meals and oral sucralfate prior to meals. He will receive morphine sulfate 2 to 4 mg IV every 2 hours on an as-needed basis for pain control using a sliding scale for dosage. Serial laboratory determinations of CBCs, metabolic profiles, lipase levels, amylase levels and magnesium levels will be obtained as appropriate.
--- NOTE | 2019-11-05 13:16 | RADIOLOGY REPORT (SQ) ---
EXAM DESCRIPTION: CT CHEST WITHOUT COMPLETED DATE/TIME: 11/05/2019 9:05 am REASON FOR STUDY: reassess pleural effusions, ?empyema COMPARISON: None. TECHNIQUE: CT scan performed of the chest without intravenous contrast. Images reviewed with lung, soft tissue and bone windows. Reconstructed coronal and sagittal MPR images reviewed. All images st ored on PACS. All CT scanners at this facility use dose modulation, iterative reconstruction, and/or weight based d osing when appropriate to reduce radiation dose to as low as reasonably achievable (ALARA). [facility]: Dose Right [facility]: CareDose [facility]: Dose Right [facility]: Teradose 4D [facility]: Smart ApiFix RADIATION DOSE: CT Rad equipment meets quality standard of care and radiation dose reduction techniq ues were employed. CTDIvol: 8.7 mGy. DLP: 302 mGy-cm. mGy. LIMITATIONS: No technical limitations. FINDINGS: LUNGS AND PLEURA: Small left pleural effusion and associated dependent airspace disease. Volume estimated less than 500 cc. Much smaller right pleural effusion. HILAR AND MEDIASTINAL STRUCTURES: No identified masses or abnormal nodes. No obvious aneurysm. HEART AND VASCULAR STRUCTURES: No aneurysm. No pericardial effusion. UPPER ABDOMEN: No significant findings. Limited exam. THYROID AND OTHER SOFT TISSUES: No masses. No adenopathy. BONES: No significant finding. HARDWARE: None in the chest. OTHER: No other significant findings. IMPRESSION: Unchanged small pleural effusions. No evidence of empyema. TECHNICAL DOCUMENTATION: JOB ID: [id number] Quality ID # [id number]: Final reports with documentation of one or more dose reduction techniques (e.g., Au tomated exposure control, adjustment of the mA and/or kV according to patient size, use of iterative reconstruction technique) 2010 [employer]- All Rights Reserved Reading location - IP/workstation name: [email or web address]
[2019-11-05] MEDS: AZITHROMYCIN 500 MG in DEXTROSE 5%-WATER 250 ML IV SCH (14:05)
[2019-11-05] MEDS: MELATONIN 5 MG TABLET PO PRN (22:00)
[2019-11-05] MEDS: ACETAMINOPHEN 325 MG TABLET PO PRN (22:05)
[2019-11-06 05:16] LABS: HEMATOCRIT 37.9 % (37.9-51.0); HEMOGLOBIN 12.6 g/dL (13.5-17.0); MEAN CORPUSCULAR HEMOGLOBIN 27.9 pg (27.0-33.4); MEAN CORPUSCULAR HGB CONC 33.3 g/dL (32.0-36.0); MEAN CORPUSCULAR VOLUME 84 fl (80-97); PLATELET COUNT 382 10^3/uL (150-450); RED BLOOD COUNT 4.52 10^6/uL (4.35-5.55); RED CELL DISTRIBUTION WIDTH 13.6 % (11.5-14.0); WHITE BLOOD COUNT 19.4 10^3/uL (4.0-10.5)
[2019-11-06] MEDS: HEPARIN SOD (PORCINE) 5,000 UNIT/ML 1 ML VIAL SUBCUT SCH ×3 (05:22→21:56)
[2019-11-06 05:36] LABS: ALBUMIN 3.1 g/dL (3.5-5.0); ALKALINE PHOSPHATASE 124 U/L (38-126); ANION GAP 11 (5-19); ASPARTATE AMINO TRANSFERASE 80 U/L (17-59); BILIRUBIN,DIRECT 0.4 mg/dL (0.0-0.4); BILIRUBIN,TOTAL 0.6 mg/dL (0.2-1.3); BLOOD UREA NITROGEN 10 mg/dL (7-20); CALCIUM 8.7 mg/dL (8.4-10.2); CARBON DIOXIDE 29 mmol/L (22-30); CHLORIDE 98 mmol/L (98-107); GLUCOSE 90 mg/dL (75-110); POTASSIUM 4.2 mmol/L (3.6-5.0); TOTAL PROTEIN 6.2 g/dL (6.3-8.2)
[2019-11-06 06:02] LABS: ABSOLUTE LYMPHOCYTES# (MANUAL) 1.6 10^3/uL (0.5-4.7); BASOPHILS % (MANUAL) 0 % (0-2); EOSINOPHILS % (MANUAL) 1 % (0-6); LYMPHOCYTES % (MANUAL) 8 % (13-45); MONOCYTES % (MANUAL) 5 % (3-13); SEGMENTED NEUTROPHILS % (MAN) 86 % (42-78); TOTAL CELLS COUNTED 100
[2019-11-06 06:06] LABS: ANISOCYTOSIS SLIGHT; OVALOCYTES 1+; PLATELET COMMENT ADEQUATE; POIKILOCYTOSIS SLIGHT; TEAR DROP CELLS SLIGHT; TOXIC GRANULATION 1+
[2019-11-06] MEDS: METOCLOPRAMIDE HCL INJ/PF 10 MG/2 ML SDV IV SCH ×4 (08:11→21:57)
[2019-11-06] MEDS ORDERED: AZITHROMYCIN INJ 500 MG VIAL IV SCH (10:00)
[2019-11-06] MEDS: DOCUSATE SODIUM 100 MG/10 ML UDC PO SCH (10:29)
[2019-11-06] MEDS: FAMOTIDINE INJ/PF 20 MG/2 ML SDV IV SCH ×2 (10:30→21:57)
[2019-11-06] MEDS: CEFTRIAXONE 1 GM/D5W RTU 1 GM/50 ML RTUPB IV SCH (10:31)
[2019-11-06] MEDS: AZITHROMYCIN 500 MG in DEXTROSE 5%-WATER 250 ML IV SCH (10:31)
--- NOTE | 2019-11-06 10:38 | PDOC PROGRESS REPORT ---
Subjective Progress Note for:: 11/06/19 Subjective:: 29 yr old male who had a recent alcohol binge who subsequently developed abdominal pain. He was found to have acute pancreatitis. 10/30: Patient tried chicken broth this morning and reported increasing recurrence of epigastric pain and required IV pain meds. Will switch him to NPO status today. Continue IV fluids. 10/31: He did have a fever yesterday afternoon. Otherwise, no acute event overnight. He says that he feels better today and his abdominal pain has impr cira. No nausea or vomiting. Currently NPO. Will try to advance diet to clear liquids. Will decrease IV fluids. 11/01: Patient had a few episodes of intermittent abdominal pain overnight. He complained of recurrence of abdominal pain with chicken broth for breakfast this morning. Will place him back to NPO status today. 11/02: No acute event overnight. But he does report that he had continued intermittent abdominal pains last night. He does not have any nausea or vomiting and is going to try clear liquids again today. Will try to advance his diet to clears again today. 11/03: No acute issues. Patient reports that his abdominal pain has improved overnight. His he was able to tolerate clear liquids last night. Will advance diet to full liquid today and possibly later to soft diet tonight. 11/04: He had a fever of 100.1 last night. He tolerated a soft diet well last night. He says his abdominal pain has significantly improved. WBC significantly trended up to 20,[address] of the pelvis shows persistent acute pancreatitis. Clinically, he continues to improve. Will advance diet further to regular diet today. He does have pleural effusions L>R, likely related to the acute pancreatitis and possible pneumonia. Repeat CXR tomorrow morning. If he continues to have persistent fever and leukocytosis, may have to consider the possibility of early or developing empyema. 11/05/[id number]-[place]rh-old male with recent history of alcohol binge admitted for severe abdominal pain found to have acute pancreatitis. Repeat CT scan of the abdomen indicates persistent of acute pancreatitis. Latest lipase level is 942. He is on a regular diet now. WBC count is 21,400 and T-max is 99.5. Plan is to repeat the labs tomorrow if the WBC count is persisting or going up or pat ient continues to have persistent fever if the CAT scan of the chest suggestive of empyema consultation with interventional radiology will be requested. Patient is comfortably in the bed communicating well. Not in distress. 11/06/2019-no acute events in the last 24 hours. Patient is afebrile. CT chest was done yesterday no evidence of empyema found. WBC count improved to 99.4 and T-max is 98.8. Lipase is continued to go up it is 1085. Denies any complaints of abdominal pain tolerating the regular diet well. Reason For Visit: ACUTE PANCREATITIS Physical Exam Vital Signs: Temp Pulse Resp BP Pulse Ox 99.8 F 75 15 114/63 97 11/05/19 19:52 11/05/19 19:52 11/05/19 19:52 11/05/19 19:52 11/05/19 19:52 Intake & Output 11/05/19 11/06/19 11/07/19 06:59 06:59 06:59 Intake Total 1226 300 Balance 1226 300 Weight 84.2 kg 84.2 kg General appearance: PRESENT: no acute distress, well-developed, well-nourished Head exam: PRESENT: atraumatic Eye exam: PRESENT: PERRLA Mouth exam: PRESENT: moist, tongue midline Teeth exam: PRESENT: poor dentation Neck exam: ABSENT: carotid bruit, JVD, lymphadenopathy, thyromegaly Respiratory exam: PRESENT: clear to auscultation sulema. ABSENT: rales, rhonchi, wheezes Cardiovascular exam: PRESENT: RRR. ABSENT: diastolic murmur, rubs, systolic murmur GI/Abdominal exam: PRESENT: normal bowel sounds, soft. ABSENT: distended, guarding, mass, organolmegaly, rebound, tenderness Rectal exam: PRESENT: deferred Neurological exam: PRESENT: alert, awake, oriented to person, oriented to place, oriented to time, oriented to situation, CN II-XII grossly intact. ABSENT: motor sensory deficit Psychiatric exam: PRESENT: appropriate affect, normal mood. ABSENT: homicidal ideation, suicidal ideation Skin exam: PRESENT: dry, intact, warm. ABSENT: cyanosis, rash Results Laboratory Results: 11/06/19 04:13 11/06/19 04:13 11/06/19 11/06/19 11/06/19 04:13 04:13 04:13 WBC 19.4 H RBC 4.52 Hgb 12.6 L Hct 37.9 MCV 84 MCH 27.9 MCHC 33.3 RDW 13.6 Plt Count 382 Seg Neutrophils % Not Reportable Sodium 137.8 Potassium 4.2 Chloride 98 Carbon Dioxide 29 Anion Gap 11 BUN 10 Creatinine 0.85 Est GFR ( Amer) > 60 Glucose 90 Calcium 8.7 Magnesium 2.4 H Total Bilirubin 0.6 AST 80 H Alkaline Phosphatase 124 Total Protein 6.2 L Albumin 3.1 L Lipase 1085.7 H Impressions: Chest X-Ray 11/02/19 00:00 IMPRESSION: Improving pneumonia left lower lobe. Abdomen/Pelvis CT 11/04/19 10:05 IMPRESSION: Persistent acute pancreatitis. No evidence of necrosis or pseudocyst formation. Chest CT 11/05/19 07:00 IMPRESSION: Unchanged small pleural effusions. No evidence of empyema. Assessment and Plan - Diagnosis (1) Acute pancreatitis Qualifiers: Pancreatitis type: alcohol induced Is this a current diagnosis for this admission?: Yes Plan: 10/30: Keep patient to NPO status today. Continue IV fluids and pain meds. 10/31: Currently NPO. Will advance diet to clear liquids. Will decrease IV fluids. 11/01: Did not tolerate clears this morning. Will keep him NPO today. 11/02: Will try to advance to clear liquid diet again today. If he continues to have recurrent abdominal pain, will repeat CT of the abdomen and pelvis. 11/03: Improving. Will advance diet to full liquid today and possibly later to soft diet tonight. 11/04: Continue to improve. Advance diet today. 2019 patient is on regular diet now recent lipase level is 954 with a WBC count of 21,400. Patient is presently on IV Rocephin. Plan is to repeat lipase levels on labs tomorrow. CT chest was done today results are pending. 11/06/2019-patient is tolerating that very well. Latest lipase level is 1085. WBC count improved to 19,400 patient is presently in azithromycin and Rocephin. (2) Pneumonia Is this a current diagnosis for this admission?: Yes Plan: Continue Rocephin. 2019-patient is getting antibiotic therapy IV Rocephin for presumed community-acquired pneumonia. CT chest report is pending. 11/06/2019-CT chest was done no evidence of empyema. Patient is presently on IV Rocephin and Zithromax. Plan is to continue the antibiotic therapy at this time. Cultures are negative. (3) Pleural effusion Is this a current diagnosis for this admission?: Yes Plan: 11/04: He had a fever of 100.1 last night. He tolerated a soft diet well last night. He says his abdominal pain has significantly improved. WBC significantly trended up to 20,[address] of the pelvis shows persistent acute pancreatitis. Clinically, he continues to improve. Will advance diet further to regular diet today. He does have pleural effusions L>R, likely related to the acute pancreatitis and possible pneumonia. Repeat CXR tomorrow morning. If he continues to have persistent fever and leukocytosis, may have to consider the possibility of early or developing empyema. 11/05/2019 T-max is 99.5 with a WBC count of 21,400 denies any shortness of breath pulse ox is 96% on room air. Plan is to repeat the labs tomorrow and CT chest report is pending today. Plan is to add azithromycin to the present antibiotic therapy. -CT chest was done yesterday indicating stable pleural effusions without evidence any emphysema. - Plan Summary Summary: Patient is admitted to the medical floor where he will receive routine supportive and symptomatic cares. He will be treated with IV fluid using lactated Ringer's. He will be allowed to take clear liquids initially as tolerated and desired. He will be treated with IV Reglan and famotidine. When he is able to take and advanced diet he should receive pancreatic enzyme replacement with meals and oral sucralfate prior to meals. He will receive morphine sulfate 2 to 4 mg IV every 2 hours on an as-needed basis for pain control using a sliding scale for dosage. Serial laboratory determinations of CBCs, metabolic profiles, lipase levels, amylase levels and magnesium levels will be obtained as appropriate.
[2019-11-06] MEDS: DOCUSATE SODIUM 100 MG CAPSULE PO SCH (17:45)
[2019-11-06] MEDS: MELATONIN 5 MG TABLET PO PRN (21:57)
[2019-11-07 04:33] LABS: ABSOLUTE EOSINOPHILS # (AUTO) 0.2 10^3/uL (0.0-0.6); ABSOLUTE LYMPHOCYTES (AUTO) 1.6 10^3/uL (0.5-4.7); ABSOLUTE MONOCYTES (AUTO) 1.5 10^3/uL (0.1-1.4); ABSOLUTE NEUT (AUTO) 16.2 10^3/uL (1.7-8.2); BASOPHILS % (AUTO) 0.2 % (0-2); EOSINOPHILS % (AUTO) 1.2 % (0-6); HEMOGLOBIN 12.1 g/dL (13.5-17.0); LYMPHOCYTES % (AUTO) 8.3 % (13-45); MEAN CORPUSCULAR HEMOGLOBIN 27.4 pg (27.0-33.4); MEAN CORPUSCULAR HGB CONC 32.7 g/dL (32.0-36.0); MEAN CORPUSCULAR VOLUME 84 fl (80-97); MONOCYTES % (AUTO) 7.6 % (3-13); PLATELET COUNT 380 10^3/uL (150-450); RED BLOOD COUNT 4.43 10^6/uL (4.35-5.55); RED CELL DISTRIBUTION WIDTH 13.6 % (11.5-14.0); SEGMENTED NEUTROPHILS % (AUTO) 82.7 % (42-78); TOTAL CELLS COUNTED % (AUTO) 100 %; WHITE BLOOD COUNT 19.6 10^3/uL (4.0-10.5)
[2019-11-07 05:00] LABS: ALBUMIN 3.2 g/dL (3.5-5.0); ALKALINE PHOSPHATASE 121 U/L (38-126); ANION GAP 10 (5-19); ASPARTATE AMINO TRANSFERASE 61 U/L (17-59); BILIRUBIN,DIRECT 0.3 mg/dL (0.0-0.4); BILIRUBIN,TOTAL 0.6 mg/dL (0.2-1.3); BLOOD UREA NITROGEN 10 mg/dL (7-20); CALCIUM 8.8 mg/dL (8.4-10.2); CARBON DIOXIDE 28 mmol/L (22-30); CHLORIDE 100 mmol/L (98-107); GLUCOSE 94 mg/dL (75-110); POTASSIUM 4.3 mmol/L (3.6-5.0); TOTAL PROTEIN 6.3 g/dL (6.3-8.2)
[2019-11-07] MEDS: HEPARIN SOD (PORCINE) 5,000 UNIT/ML 1 ML VIAL SUBCUT SCH ×3 (05:56→21:21)
[2019-11-07] MEDS: METOCLOPRAMIDE HCL INJ/PF 10 MG/2 ML SDV IV SCH ×4 (07:49→21:21)
[2019-11-07] MEDS: AZITHROMYCIN 500 MG in DEXTROSE 5%-WATER 250 ML IV SCH (09:03)
[2019-11-07] MEDS: FAMOTIDINE INJ/PF 20 MG/2 ML SDV IV SCH ×2 (09:03→21:21)
[2019-11-07] MEDS: CEFTRIAXONE 1 GM/D5W RTU 1 GM/50 ML RTUPB IV SCH (09:04)
[2019-11-07] MEDS: DOCUSATE SODIUM 100 MG CAPSULE PO SCH ×2 (09:04→17:27)
--- NOTE | 2019-11-07 11:39 | PDOC PROGRESS REPORT ---
Subjective Progress Note for:: 11/07/19 Subjective:: Patient has less pain but still feels poorly. He has been on high regular diet but his amylase has not improved and in fact it is slightly higher today. He does report that he has less abdominal pain. He is moving his bowels. He has not had any emesis. Reason For Visit: ACUTE PANCREATITIS Physical Exam Vital Signs: Temp Pulse Resp BP Pulse Ox 98.1 F 68 18 106/61 100 11/07/19 07:09 11/07/19 07:09 11/07/19 07:09 11/07/19 07:09 11/07/19 07:09 Intake & Output 11/06/19 11/07/19 11/08/19 06:59 06:59 06:59 Intake Total 300 1317 Balance 300 1317 Weight 84.2 kg 61.9 kg General appearance: PRESENT: no acute distress, cooperative, well-developed Head exam: PRESENT: atraumatic, normocephalic Mouth exam: PRESENT: dry mucosa, tongue midline Neck exam: PRESENT: full ROM. ABSENT: lymphadenopathy, tracheal deviation, tracheostomy Respiratory exam: PRESENT: clear to auscultation sulema, symmetrical, unlabored. ABSENT: accessory muscle use, prolonged expiratory phas, rales, rhonchi, tachypnea, wheezes Cardiovascular exam: PRESENT: RRR, +S1, +S2. ABSENT: diastolic murmur, systolic murmur GI/Abdominal exam: PRESENT: normal bowel sounds, soft. ABSENT: distended, guarding, tenderness Rectal exam: PRESENT: deferred Gentrourinary exam: ABSENT: indwelling catheter Extremities exam: PRESENT: full ROM. ABSENT: joint swelling, pedal edema Musculoskeletal exam: PRESENT: ambulatory, full ROM, normal inspection Neurological exam: PRESENT: alert, awake, oriented to person, oriented to place, oriented to time, oriented to situation, CN II-XII grossly intact. ABSENT: motor sensory deficit Psychiatric exam: PRESENT: appropriate affect. ABSENT: agitated, anxious Focused psych exam: ABSENT: delusional, restlessness Skin exam: PRESENT: dry, normal color, warm. ABSENT: rash Results Laboratory Results: 11/07/19 03:45 11/07/19 03:45 11/07/19 11/07/19 03:45 03:45 WBC 19.6 H RBC 4.43 Hgb 12.1 L Hct 37.0 L MCV 84 MCH 27.4 MCHC 32.7 RDW 13.6 Plt Count 380 Seg Neutrophils % 82.7 H Sodium 137.5 Potassium 4.3 Chloride 100 Carbon Dioxide 28 Anion Gap 10 BUN 10 Creatinine 0.83 Est GFR ( Amer) > 60 Glucose 94 Calcium 8.8 Magnesium 2.3 Total Bilirubin 0.6 AST 61 H Alkaline Phosphatase 121 Total Protein 6.3 Albumin 3.2 L Lipase 1098.7 H Impressions: Chest X-Ray 11/02/19 00:00 IMPRESSION: Improving pneumonia left lower lobe. Abdomen/Pelvis CT 11/04/19 10:05 IMPRESSION: Persistent acute pancreatitis. No evidence of necrosis or pseudocyst formation. Chest CT 11/05/19 07:00 IMPRESSION: Unchanged small pleural effusions. No evidence of empyema. Assessment and Plan - Diagnosis (1) Acute pancreatitis Qualifiers: Pancreatitis type: alcohol induced Is this a current diagnosis for this admission?: Yes Plan: Patient has been eating regular diet. His amylase is still hovering around 1000. I am going to make him n.p.o. and this should help his amylase to trend down. We can then consider advancing his diet very slowly. At this point I will hold off on pancreatic enzymes. (2) Pneumonia Qualifiers: Pneumonia type: due to unspecified organism Laterality: left Lung location: lower lobe of lung Qualified Code(s): J18.9 - Pneumonia, unspecified organism Is this a current diagnosis for this admission?: Yes Plan: Possibly aspirated when intoxicated. Continue dual antibiotic therapy at this time. White blood cell count is still elevated. Continue to monitor. (3) Pleural effusion Is this a current diagnosis for this admission?: Yes Plan: Possibly related to pneumonia versus pancreatitis. No history of heart disease. Continue to monitor. Stable by x-ray. - Plan Summary Summary: Patient is admitted to the medical floor where he will receive routine supportive and symptomatic cares. He will be treated with IV fluid using lactated Ringer's. He will be allowed to take clear liquids initially as tolerated and desired. He will be treated with IV Reglan and famotidine. When he is able to take and advanced diet he should receive pancreatic enzyme replacement with meals and oral sucralfate prior to meals. He will receive morphine sulfate 2 to 4 mg IV every 2 hours on an as-needed basis for pain control using a sliding scale for dosage. Serial laboratory determinations of CBCs, metabolic profiles, lipase levels, amylase levels and magnesium levels will be obtained as appropriate. - Time Time Spent with patient: 15-24 minutes Medications reviewed and adjusted accordingly: Yes Anticipated discharge: Home
[2019-11-08] MEDS: HEPARIN SOD (PORCINE) 5,000 UNIT/ML 1 ML VIAL SUBCUT SCH ×2 (06:14→13:10)
[2019-11-08 07:24] LABS: HEMATOCRIT 37.7 % (37.9-51.0); HEMOGLOBIN 12.6 g/dL (13.5-17.0); MEAN CORPUSCULAR HGB CONC 33.5 g/dL (32.0-36.0); MEAN CORPUSCULAR VOLUME 84 fl (80-97); PLATELET COUNT 369 10^3/uL (150-450); RED BLOOD COUNT 4.52 10^6/uL (4.35-5.55); RED CELL DISTRIBUTION WIDTH 13.4 % (11.5-14.0); WHITE BLOOD COUNT 13.7 10^3/uL (4.0-10.5)
[2019-11-08 07:44] LABS: ALBUMIN 3.5 g/dL (3.5-5.0); ALKALINE PHOSPHATASE 125 U/L (38-126); ANION GAP 12 (5-19); ASPARTATE AMINO TRANSFERASE 72 U/L (17-59); BILIRUBIN,DIRECT 0.6 mg/dL (0.0-0.4); BILIRUBIN,TOTAL 0.9 mg/dL (0.2-1.3); BLOOD UREA NITROGEN 12 mg/dL (7-20); CALCIUM 9.2 mg/dL (8.4-10.2); CARBON DIOXIDE 25 mmol/L (22-30); CHLORIDE 101 mmol/L (98-107); GLUCOSE 82 mg/dL (75-110); POTASSIUM 4.4 mmol/L (3.6-5.0); TOTAL PROTEIN 6.8 g/dL (6.3-8.2)
[2019-11-08] MEDS: METOCLOPRAMIDE HCL INJ/PF 10 MG/2 ML SDV IV SCH ×2 (09:10→13:12)
[2019-11-08] MEDS: CEFTRIAXONE 1 GM/D5W RTU 1 GM/50 ML RTUPB IV SCH (09:10)
[2019-11-08] MEDS: FAMOTIDINE INJ/PF 20 MG/2 ML SDV IV SCH (09:10)
[2019-11-08] MEDS: DOCUSATE SODIUM 100 MG CAPSULE PO SCH (09:10)
[2019-11-08] MEDS: AZITHROMYCIN 500 MG in DEXTROSE 5%-WATER 250 ML IV SCH (10:08)
--- NOTE | 2019-11-08 13:27 | PDOC DISCHARGE SUMMARY ---
Impression - Admit/DC Date/PCP Admission Date/Primary Care Provider: 10/29/19 21:51 Discharge Date: 11/08/19 - Discharge Diagnosis (1) Acute pancreatitis Is this a current diagnosis for this admission?: Yes (2) Pneumonia Is this a current diagnosis for this admission?: Yes (3) Pleural effusion Is this a current diagnosis for this admission?: Yes - Assessment Summary: Patient is admitted to the medical floor where he will receive routine supportive and symptomatic cares. He will be treated with IV fluid using lactated Ringer's. He will be allowed to take clear liquids initially as tolerated and desired. He will be treated with IV Reglan and famotidine. When he is able to take and advanced diet he should receive pancreatic enzyme replacement with meals and oral sucralfate prior to meals. He will receive morphine sulfate 2 to 4 mg IV every 2 hours on an as-needed basis for pain control using a sliding scale for dosage. Serial laboratory determinations of CBCs, metabolic profiles, lipase levels, amylase levels and magnesium levels will be obtained as appropriate. - Additional Information Resuscitation Status: Full Code Discharge Diet: As Tolerated, Other (Comments) - See above Discharge Activity: Activity As Tolerated, Other - Return to work November 13 Referrals: [facility] [Outside] - 11/14/19 10:30 am (They are booked up until November, call back, when they the new list comes out.) Prescriptions: Azithromycin [Zithromax 250 mg Tablet] 250 mg PO DAILY #5 tablet Home Medications: Azithromycin [Zithromax 250 mg Tablet] 250 mg PO DAILY #5 tablet 11/08/19 History of Present Illiness History of Present Illness: RAHUL MARTINEZ is a 29 year old male who developed acute onset severe epigastric pain with nausea and vomiting after binge drinking Hospital Course Hospital Course: The patient had a prolonged hospital course mostly because we could not see a consistent decline in his lipase level. A trial of pancreatic enzymes was instituted. These were discontinued and on his diet his lipase increased. I finally made him n.p.o. except clear liquids. His lipase improved and he felt much better. I told him to continue clear liquids as an outpatient and advance his diet very slowly. He was stable for discharge at this time. Physical Exam Vital Signs: Temp Pulse Resp BP Pulse Ox 97.5 F 60 17 102/64 100 11/08/19 11:18 11/08/19 11:18 11/08/19 11:18 11/08/19 11:18 11/08/19 11:18 Intake & Output 11/07/19 11/08/19 11/09/19 06:59 06:59 06:59 Intake Total 1317 620 300 Balance 1317 620 300 Weight 61.9 kg 60.8 kg General appearance: PRESENT: no acute distress, cooperative, well-developed, well-nourished Head exam: PRESENT: atraumatic, normocephalic Ear exam: PRESENT: normal external ear exam. ABSENT: bleeding, drainage Mouth exam: PRESENT: moist, tongue midline Respiratory exam: PRESENT: clear to auscultation sulema, symmetrical, unlabored. ABSENT: prolonged expiratory phas, rales, rhonchi, tachypnea, wheezes Cardiovascular exam: PRESENT: RRR, +S1, +S2 GI/Abdominal exam: PRESENT: normal bowel sounds, soft, tenderness - Very minimal epigastric tenderness. ABSENT: distended Rectal exam: PRESENT: deferred Musculoskeletal exam: PRESENT: ambulatory, normal inspection Neurological exam: PRESENT: alert, awake, oriented to person, oriented to place, oriented to time, oriented to situation, CN II-XII grossly intact Psychiatric exam: PRESENT: appropriate affect. ABSENT: agitated, anxious Skin exam: PRESENT: dry, warm. ABSENT: rash Results Laboratory Results: WBC 13.7 10^3/uL (4.0-10.5) H 11/08/19 06:20 RBC 4.52 10^6/uL (4.35-5.55) 11/08/19 06:20 Hgb 12.6 g/dL (13.5-17.0) L 11/08/19 06:20 Hct 37.7 % (37.9-51.0) L 11/08/19 06:20 MCV 84 fl (80-97) 11/08/19 06:20 MCH 28.0 pg (27.0-33.4) 11/08/19 06:20 MCHC 33.5 g/dL (32.0-36.0) 11/08/19 06:20 RDW 13.4 % (11.5-14.0) 11/08/19 06:20 Plt Count 369 10^3/uL (150-450) 11/08/19 06:20 Lymph % (Auto) 8.3 % (13-45) L 11/07/19 03:45 [place]man % (Auto) 7.6 % (3-13) 11/07/19 03:45 Eos % (Auto) 1.2 % (0-6) 11/07/19 03:45 Baso % (Auto) 0.2 % (0-2) 11/07/19 03:45 Absolute Neuts (auto) 16.2 10^3/uL (1.7-8.2) H 11/07/19 03:45 Absolute Lymphs (auto) 1.6 10^3/uL (0.5-4.7) 11/07/19 03:45 Absolute Monos (auto) 1.5 10^3/uL (0.1-1.4) H 11/07/19 03:45 Absolute Eos (auto) 0.2 10^3/uL (0.0-0.6) 11/07/19 03:45 Absolute Basos (auto) 0.0 10^3/uL (0.0-0.2) 11/07/19 03:45 Total Counted 100 11/06/19 04:13 Seg Neutrophils % 82.7 % (42-78) H 11/07/19 03:45 Seg Neuts % (Manual) 86 % (42-78) H 11/06/19 04:13 Band Neutrophils % 5 % (3-5) 11/05/19 04:42 Lymphocytes % (Manual) 8 % (13-45) L 11/06/19 04:13 Monocytes % (Manual) 5 % (3-13) 11/06/19 04:13 Eosinophils % (Manual) 1 % (0-6) 11/06/19 04:13 Basophils % (Manual) 0 % (0-2) 11/06/19 04:13 Metamyelocytes % 1 % (0-1) 11/05/19 04:42 Abs Neuts (Manual) 16.7 10^3/uL (1.7-8.2) H 11/06/19 04:13 Abs Lymphs (Manual) 1.6 10^3/uL (0.5-4.7) 11/06/19 04:13 Abs Monocytes (Manual) 1.0 10^3/uL (0.1-1.4) 11/06/19 04:13 Absolute Eos (Manual) 0.2 10^3/uL (0.0-0.6) 11/06/19 04:13 Abs Basophils (Manual) 0.0 10^3/uL (0.0-0.2) 11/06/19 04:13 Toxic Granulation 1+ 11/06/19 04:13 Toxic Vacuolation PRESENT 11/04/19 08:40 Platelet Comment ADEQUATE 11/06/19 04:13 Polychromasia 1+ 11/05/19 04:42 Poikilocytosis SLIGHT 11/06/19 04:13 Anisocytosis SLIGHT 11/06/19 04:13 Tear Drop Cells SLIGHT 11/06/19 04:13 Ovalocytes 1+ 11/06/19 04:13 RBC Morph Comment NORMO-CYTIC/CHROMIC 10/29/19 17:30 Sodium 138.0 mmol/L (137-145) 11/08/19 06:20 Potassium 4.4 mmol/L (3.6-5.0) 11/08/19 06:20 Chloride 101 mmol/L (98-107) 11/08/19 06:20 Carbon Dioxide 25 mmol/L (22-30) 11/08/19 06:20 Anion Gap 12 (5-19) 11/08/19 06:20 BUN 12 mg/dL (7-20) 11/08/19 06:20 Creatinine 0.71 mg/dL (0.52-1.25) 11/08/19 06:20 Est GFR ( Amer) > 60 (>60) 11/08/19 06:20 Est GFR (MDRD) Non-Af > 60 (>60) 11/08/19 06:20 Glucose 82 mg/dL (75-110) 11/08/19 06:20 Lactic Acid 0.9 mmol/L (0.7-2.1) 10/30/19 06:06 Calcium 9.2 mg/dL (8.4-10.2) 11/08/19 06:20 Magnesium 2.3 mg/dL (1.6-2.3) 11/08/19 06:20 Total Bilirubin 0.9 mg/dL (0.2-1.3) 11/08/19 06:20 Direct Bilirubin 0.6 mg/dL (0.0-0.4) H 11/08/19 06:20 Neonat Total Bilirubin Not Reportable 11/08/19 06:20 Neonat Direct Bilirubin Not Reportable 11/08/19 06:20 Neonat Indirect Bili Not Reportable 11/08/19 06:20 AST 72 U/L (17-59) H 11/08/19 06:20 ALT 97 U/L (<50) 11/08/19 06:20 Alkaline Phosphatase 125 U/L (38-126) 11/08/19 06:20 Total Protein 6.8 g/dL (6.3-8.2) 11/08/19 06:20 Albumin 3.5 g/dL (3.5-5.0) 11/08/19 06:20 Triglycerides 134 mg/dL (<150) 10/30/19 06:06 Cholesterol 153.54 mg/dL (0-200) 10/30/19 06:06 LDL Cholesterol Direct 90 mg/dL (<100) 10/30/19 06:06 VLDL Cholesterol 27.0 mg/dL (10-31) 10/30/19 06:06 HDL Cholesterol 43 mg/dL (>40) 10/30/19 06:06 Amylase 218 U/L (30-110) H 10/30/19 06:06 Lipase 854.5 U/L (23-300) H 11/08/19 06:20 TSH 2.29 uIU/mL (0.47-4.68) 10/30/19 06:06 Free T3 pg/mL 2.10 pg/mL (2.77-5.27) L 10/29/19 17:30 Urine Color JANE 10/29/19 17:30 Urine Appearance SLIGHTLY-CLOUDY 10/29/19 17:30 Urine pH 6.0 (5.0-9.0) 10/29/19 17:30 Ur Specific [place] 1.027 10/29/19 17:30 Urine Protein 100 mg/dL (NEGATIVE) H 10/29/19 17:30 Urine Glucose (UA) NEGATIVE mg/dL (NEGATIVE) 10/29/19 17:30 Urine Ketones TRACE mg/dL (NEGATIVE) H 10/29/19 17:30 Urine Blood SMALL (NEGATIVE) H 10/29/19 17:30 Urine Nitrite NEGATIVE (NEGATIVE) 10/29/19 17:30 Urine Bilirubin NEGATIVE (NEGATIVE) 10/29/19 17:30 Urine Urobilinogen 2.0 mg/dL (<2.0) H 10/29/19 17:30 Ur Leukocyte Esterase NEGATIVE (NEGATIVE) 10/29/19 17:30 Urine WBC (Auto) 4 /HPF 10/29/19 17:30 Urine RBC (Auto) 1 /HPF 10/29/19 17:30 Urine Mucus (Auto) FEW /LPF 10/29/19 17:30 Urine Ascorbic Acid NEGATIVE (NEGATIVE) 10/29/19 17:30 Impressions: Abdomen/Pelvis CT 10/29/19 18:45 IMPRESSION: Moderate findings of pancreatitis. Mild upper abdominal ascites. Small bilateral pleural effusions. Chest X-Ray 10/30/19 08:59 IMPRESSION: Left basilar infiltrate either atelectasis or pneumonia. Chest X-Ray 11/02/19 00:00 IMPRESSION: Improving pneumonia left lower lobe. Abdomen/Pelvis CT 11/04/19 10:05 IMPRESSION: Persistent acute pancreatitis. No evidence of necrosis or pseudocyst formation. Chest CT 11/05/19 07:00 IMPRESSION: Unchanged small pleural effusions. No evidence of empyema. Plan Health Concerns: Strongly suggested patient stop drinking Plan of Treatment: Advance diet slowly. Follow-up at [facility]. Complete azithromycin for pneumonia. Time Spent: Greater than 30 Minutes Stroke Is this a Stroke Patient?: No Acute Heart Failure - Is this a Heart Failure Patient?: No
[2019-11-08 13:31] VITALS: BP 122/81
== END 2019-11-08 14:05 | disposition home or self-care (01) | DRG 438 ==
LOC: ER 16:08 → EH 21:51 → 3W 23:44 → 5 11-05 00:03
PROVIDERS: ADMIT Emergency Medicine; ATTEND Emergency Medicine
DX: K85.20 Alcohol induced acute pancreatitis without necrosis or infection (principal); J18.9 Pneumonia, unspecified organism; E87.1 Hypo-osmolality and hyponatremia; J91.8 Pleural effusion in other conditions classified elsewhere; D72.829 Elevated white blood cell count, unspecified
CPT/HCPCS: 36415; 71045; 71250; 74177; 80048; 80053; 80061; 81001; 82150; 83605; 83690; 83735; 84132; 84443; 84481; 85025; 85027; 87040; 94799; 96361; 96374; 99285; J0456; J0696; J1644; J1885; J2270; J2765; J3480; J3490; J7030; J7060; J7121; S0028